=== PATIENT | male | born 1955 | race Asian ===

== ENCOUNTER 2022-05-11 08:30 | Inpatient (IN) ==
[2022-05-11] MEDS ORDERED: Lactated Ringers 1000 ml BAG 1,000 ML IV ONE (09:02)
[2022-05-11 09:34] LABS: Hematocrit 26 % (42-52); Hemoglobin 8.2 g/dL (14.0-18.0); Mean Corpuscular HGB Conc 32 g/dL (31-36); Mean Corpuscular Hemoglobin 29 pg (27-31); Mean Corpuscular Volume 90 fL (80-94); Mean Platelet Volume 8.1 fL (7.4-10.4); Platelet Count 343 10^3/uL (150-450); Red Blood Count 2.89 10^6 /uL (4.18-5.48); Red Cell Distribution Width 15 % (10-15); White Blood Count 21.9 10^3/uL (3.5-10.8)
[2022-05-11 10:00] LABS: INR 1.51 (0.88-1.18)
[2022-05-11 10:06] LABS: ABS Basophils 0.1 10^3/ul (0-0.2); ABS Eosinophils 0.2 10^3/ul (0-0.6); ABS Lymphocytes 0.3 10^3/ul (1.0-4.8); ABS Monocytes 1.1 10^3/ul (0-0.8); ABS Neutrophils 20.3 10^3/ul (1.5-7.7); Eosinophil % 0.8 %; Lymphocyte % 1.2 %; Nucleated Red Blood Cells % 0.1
[2022-05-11 10:13] LABS: Albumin 2.7 g/dL (3.2-5.2); Albumin/Globulin Ratio 1.1 (1-3); C Reactive Protein 143.14 mg/L (<8.01); Creatinine, Serum 7.76 mg/dL (0.67-1.17); Globulin 2.5 g/dL (2-4); Potassium 3.7 mmol/L (3.5-5.0); Total Bilirubin 0.3 mg/dL (0.2-1.0); Total Protein 5.2 g/dL (6.4-8.9); eGFR CKD-EPI 7.2 (>60)
[2022-05-11 10:18] LABS: Calcium 6.4 mg/dL (8.6-10.3)
[2022-05-11 10:27] LABS: TSH Ultra Thyroid Stim Horm 0.8 mcIU/mL (0.34-5.60)
[2022-05-11 10:28] LABS: PSA Screening Total 0.129 ng/mL (0-4.000)
[2022-05-11 11:07] LABS: High Sensitivity Troponin 1 Hr 61 pg/mL (<20)
[2022-05-11] MEDS ORDERED: Calcium Gluconate 1 GM/10 ML VIAL (in Pyxis) IV PUSH ONE (11:23)
[2022-05-11] MEDS ORDERED: NS 0.9% 500 ml BAG 500 ML IV ONE (11:23)
[2022-05-11] MEDS ORDERED: Sodium Bicarbonate 8.4% SYR 50 ml SYRINGE IV ONE ×2 (11:28→11:37)
[2022-05-11 11:37] LABS: Erythrocyte Sed Rate 90 mm/Hr (0-19)
[2022-05-11] MEDS ORDERED: Morphine 2 MG/ML SYRINGE IV ONE (11:39)
[2022-05-11] MEDS ORDERED: CALCIUM GLUCONATE 1GM/50ML NS BAG IV ONE (11:45)
[2022-05-11] MEDS ORDERED: Piperacillin/Tazobac ADVAN 3.375 GM in NS 0.9% 100 ml BAG 100 ML IV ONE ×2 (12:22→23:00)
[2022-05-11 12:25] LABS: PO2 Arterial 124 mmHg (80-100)
[2022-05-11 12:33] LABS: PCO2 Arterial <20 mmHg (35-45)
[2022-05-11 13:54] LABS: Urine Appearance Clear; Urine Bilirubin Negative (Negative); Urine Blood 2+ (Negative); Urine Color Straw; Urine Glucose 1+(50 mg/dL) (Negative); Urine Ketones Trace (Negative); Urine Nitrite Negative (Negative); Urine Protein 2+(100 mg/dL) (Negative); Urine Urobilinogen Negative (Negative)
[2022-05-11 13:58] LABS: Urine Bacteria 1+ (Absent); Urine Red Blood Cell 1+(3-5/hpf) (Absent); Urine White Blood Cell Trace(0-5/hpf) (Absent)
[2022-05-11] MEDS ORDERED: Dextrose 50% Syringe 50 ml 25 GM/50 ML SYRINGE IV PUSH PRN (14:11)
[2022-05-11 14:35] LABS: Magnesium 1.6 mg/dL (1.9-2.7)
[2022-05-11 15:04] LABS: Ferritin 358.5 ng/mL (24-336)
[2022-05-11] MEDS ORDERED: Morphine 2 MG/ML SYRINGE IV PRN (15:06)
[2022-05-11] MEDS ORDERED: Ondansetron 4 mg VIAL 2 MG/ML 2 ml VIAL IV PRN (15:25)
[2022-05-11] MEDS ORDERED: Zosyn per Pharmacy NOTE FOLLOW UP SCH ×2 (16:00)
[2022-05-11] MEDS: Heparin 1,000 UNIT/ML 10 ml (10,000 UNITS) CATHLAB/DIALYSIS DIALYSIS SCH ×4 (16:28→19:44)
[2022-05-11] MEDS ORDERED: Lidocaine 1% w EPI 1:100,000 MDV 20 ML VIAL INJ ONE (16:38)
[2022-05-11 17:05] LABS: Hepatitis B Surface Antigen Nonreactive (Nonreactive)
[2022-05-11] MEDS ORDERED: Magnesium Sulfate 2 gm BAG 2 GM/50 ML BAG IVPB ONE (17:11)
[2022-05-11 17:22] LABS: Hepatitis B Surface Ab Immune (Immune)
[2022-05-11 17:23] LABS: Hepatitis C Antibody Negative (Negative)
[2022-05-11] MEDS: Morphine 2 MG/ML SYRINGE IV PRN (17:37)
[2022-05-11] MEDS: NS 0.9% 1000 ml BAG 1,000 ML IV SCH (17:56)
[2022-05-11 17:59] LABS: HIV 4th Generation Nonreactive (Nonreactive)
[2022-05-11] MEDS ORDERED: Lidocaine 1% w EPI 1:100,000 MDV 50 ML VIAL INJ ONE (18:00)
[2022-05-11] MEDS: ZOSYN 3.375 GM Q12H per EXTENDED INFUSION IV SCH (19:19)
[2022-05-11 20:33] LABS: Folate 12.64 ng/mL (5.90-24.80)
[2022-05-11] MEDS ORDERED: Vancomycin 1,250 MG in NS 0.9% 250 ml 250 ML IVPB ONE (21:00)
[2022-05-11] MEDS: Heparin 5000 UNITS/ML 1 mL VIAL SUBCUT SCH (23:13)
[2022-05-12] MEDS: Prochlorperazine 5 mg/ml 2 ml VIAL (10 mg) IV PRN ×2 (01:32→20:53)
[2022-05-12] MEDS: Heparin 5000 UNITS/ML 1 mL VIAL SUBCUT SCH ×3 (06:09→20:59)
[2022-05-12] MEDS: NS 0.9% 1000 ml BAG 1,000 ML IV SCH (06:11)
[2022-05-12] MEDS: ZOSYN 3.375 GM Q12H per EXTENDED INFUSION IV SCH (08:05)
[2022-05-12] MEDS ORDERED: ceFAZolin 2 GM in NS PREMIX 2 GM/100 ML BAG IVPB SCH (11:00)
[2022-05-12 11:21] LABS: ABS Eosinophils 0.1 10^3/ul (0-0.6); ABS Lymphocytes 0.2 10^3/ul (1.0-4.8); ABS Monocytes 0.8 10^3/ul (0-0.8); ABS Neutrophils 11.8 10^3/ul (1.5-7.7); Eosinophil % 0.4 %; Hematocrit 23 % (42-52); Hemoglobin 7.5 g/dL (14.0-18.0); Lymphocyte % 1.9 %; Mean Corpuscular HGB Conc 33 g/dL (31-36); Mean Corpuscular Hemoglobin 30 pg (27-31); Mean Corpuscular Volume 90 fL (80-94); Mean Platelet Volume 8.2 fL (7.4-10.4); Platelet Count 270 10^3/uL (150-450); Red Blood Count 2.53 10^6 /uL (4.18-5.48); Red Cell Distribution Width 15 % (10-15)
[2022-05-12 12:27] LABS: Calcium 6.8 mg/dL (8.6-10.3); Creatinine, Serum 5.34 mg/dL (0.67-1.17); Potassium 3.5 mmol/L (3.5-5.0); eGFR CKD-EPI 11.3 (>60)
[2022-05-12 12:50] LABS: ABS Basophils 0.1 10^3/ul (0-0.2); ABS Eosinophils 0.1 10^3/ul (0-0.6); ABS Lymphocytes 0.2 10^3/ul (1.0-4.8); ABS Monocytes 0.7 10^3/ul (0-0.8); ABS Neutrophils 11.5 10^3/ul (1.5-7.7); Eosinophil % 0.6 %; Hematocrit 23 % (42-52); Hemoglobin 7.3 g/dL (14.0-18.0); Lymphocyte % 1.4 %; Mean Corpuscular HGB Conc 32 g/dL (31-36); Mean Corpuscular Hemoglobin 29 pg (27-31); Mean Corpuscular Volume 90 fL (80-94); Mean Platelet Volume 8.7 fL (7.4-10.4); Platelet Count 271 10^3/uL (150-450); Red Blood Count 2.54 10^6 /uL (4.18-5.48); Red Cell Distribution Width 15 % (10-15); White Blood Count 12.5 10^3/uL (3.5-10.8)
[2022-05-12 13:35] LABS: Calcium 6.7 mg/dL (8.6-10.3); Creatinine, Serum 5.22 mg/dL (0.67-1.17); Magnesium 1.9 mg/dL (1.9-2.7); Potassium 3.4 mmol/L (3.5-5.0); eGFR CKD-EPI 11.6 (>60)
[2022-05-12] MEDS: Heparin 1,000 UNIT/ML 10 ml (10,000 UNITS) CATHLAB/DIALYSIS DIALYSIS SCH ×4 (13:42→17:07)
[2022-05-12] MEDS: Morphine 2 MG/ML SYRINGE IV PRN (14:57)
[2022-05-12] MEDS: Lidocaine 2% JELLY 6 ML Topical TOPICAL SCH ×2 (17:13→22:47)
[2022-05-12] MEDS: ceFAZolin 1 GM in Dextrose 1 GM/50 ML BAG IVPB SCH (17:58)
[2022-05-12] MEDS: Senna TAB 8.6 mg TAB PO PRN (21:01)
[2022-05-13] MEDS: Heparin 5000 UNITS/ML 1 mL VIAL SUBCUT SCH ×3 (06:10→22:05)
[2022-05-13 06:46] LABS: ABS Eosinophils 0.2 10^3/ul (0-0.6); ABS Lymphocytes 0.4 10^3/ul (1.0-4.8); ABS Monocytes 0.9 10^3/ul (0-0.8); ABS Neutrophils 8.4 10^3/ul (1.5-7.7); Eosinophil % 1.6 %; Hematocrit 23 % (42-52); Hemoglobin 7.6 g/dL (14.0-18.0); Mean Corpuscular HGB Conc 33 g/dL (31-36); Mean Corpuscular Hemoglobin 30 pg (27-31); Mean Corpuscular Volume 90 fL (80-94); Platelet Count 251 10^3/uL (150-450); Red Blood Count 2.56 10^6 /uL (4.18-5.48); Red Cell Distribution Width 14 % (10-15); White Blood Count 9.8 10^3/uL (3.5-10.8)
[2022-05-13 07:25] LABS: Calcium 7.3 mg/dL (8.6-10.3); Creatinine, Serum 3.98 mg/dL (0.67-1.17); Magnesium 1.7 mg/dL (1.9-2.7); Potassium 3.5 mmol/L (3.5-5.0)
[2022-05-13] MEDS ORDERED: Potassium Chlor 20 meq TAB.ER PO ONE (07:26)
[2022-05-13] MEDS ORDERED: NS 0.9% 1000 ml BAG 1,000 ML IV SCH (09:45)
[2022-05-13] MEDS: Lidocaine 2% JELLY 6 ML Topical TOPICAL SCH ×3 (09:52→22:05)
[2022-05-13] MEDS: Prochlorperazine 5 mg/ml 2 ml VIAL (10 mg) IV PRN (11:40)
[2022-05-13] MEDS: ceFAZolin 1 GM in Dextrose 1 GM/50 ML BAG IVPB SCH (15:00)
[2022-05-13] MEDS: Morphine 2 MG/ML SYRINGE IV PRN (15:10)
[2022-05-13] MEDS: Heparin 1,000 UNIT/ML 10 ml (10,000 UNITS) CATHLAB/DIALYSIS DIALYSIS SCH (22:04)
[2022-05-14] MEDS: Heparin 5000 UNITS/ML 1 mL VIAL SUBCUT SCH ×3 (04:57→20:03)
[2022-05-14 05:12] LABS: ABS Basophils 0.1 10^3/ul (0-0.2); ABS Eosinophils 0.4 10^3/ul (0-0.6); ABS Lymphocytes 0.5 10^3/ul (1.0-4.8); ABS Monocytes 0.7 10^3/ul (0-0.8); ABS Neutrophils 7.3 10^3/ul (1.5-7.7); Eosinophil % 4.3 %; Hematocrit 22 % (42-52); Hemoglobin 7.1 g/dL (14.0-18.0); Lymphocyte % 5.3 %; Mean Corpuscular HGB Conc 32 g/dL (31-36); Mean Corpuscular Hemoglobin 29 pg (27-31); Mean Corpuscular Volume 91 fL (80-94); Mean Platelet Volume 8.3 fL (7.4-10.4); Nucleated Red Blood Cells % 0.1; Platelet Count 239 10^3/uL (150-450); Red Blood Count 2.46 10^6 /uL (4.18-5.48); Red Cell Distribution Width 15 % (10-15)
[2022-05-14 05:45] LABS: Calcium 7.4 mg/dL (8.6-10.3); Creatinine, Serum 4.79 mg/dL (0.67-1.17); Magnesium 1.8 mg/dL (1.9-2.7); Potassium 3.9 mmol/L (3.5-5.0); eGFR CKD-EPI 12.8 (>60)
[2022-05-14] MEDS ORDERED: Magnesium Sulfate 2 gm BAG 2 GM/50 ML BAG IVPB ONE (07:33)
[2022-05-14 09:43] LABS: Complement C3 107 mg/dL (75 - 175)
[2022-05-14 10:42] LABS: Myeloperoxidase Antibody <0.2 U
[2022-05-14] MEDS: Lidocaine 2% JELLY 6 ML Topical TOPICAL SCH ×3 (11:40→19:43)
[2022-05-14 12:25] LABS: Albumin 2.1 g/dL (3.4-4.7); Albumin/Globulin Ratio 0.73; Gamma Globulin 0.7 g/dL (0.6-1.6)
[2022-05-14] MEDS: Prochlorperazine 5 mg/ml 2 ml VIAL (10 mg) IV PRN ×2 (12:25→19:46)
[2022-05-14] MEDS: Ondansetron 4 mg VIAL 2 MG/ML 2 ml VIAL IV PRN (12:26)
[2022-05-14] MEDS: ceFAZolin 1 GM in Dextrose 1 GM/50 ML BAG IVPB SCH ×2 (14:21→19:43)
[2022-05-14 14:34] LABS: Kappa Free Light Chain 9.51 mg/dL; Lambda Free Light Chain, S 7.54 mg/dL
[2022-05-14] MEDS: Heparin 1,000 UNIT/ML 10 ml (10,000 UNITS) CATHLAB/DIALYSIS DIALYSIS SCH ×2 (15:31→17:18)
[2022-05-14] MEDS: Morphine 2 MG/ML SYRINGE IV PRN (19:43)
[2022-05-15] MEDS: Heparin 5000 UNITS/ML 1 mL VIAL SUBCUT SCH ×3 (05:41→20:12)
[2022-05-15 06:07] LABS: ABS Basophils 0.1 10^3/ul (0-0.2); ABS Eosinophils 0.6 10^3/ul (0-0.6); ABS Lymphocytes 0.5 10^3/ul (1.0-4.8); ABS Monocytes 0.6 10^3/ul (0-0.8); ABS Neutrophils 6.4 10^3/ul (1.5-7.7); Eosinophil % 7.5 %; Hematocrit 21 % (42-52); Hemoglobin 7.1 g/dL (14.0-18.0); Lymphocyte % 5.9 %; Mean Corpuscular HGB Conc 33 g/dL (31-36); Mean Corpuscular Hemoglobin 30 pg (27-31); Mean Corpuscular Volume 91 fL (80-94); Mean Platelet Volume 8.2 fL (7.4-10.4); Platelet Count 209 10^3/uL (150-450); Red Blood Count 2.36 10^6 /uL (4.18-5.48); Red Cell Distribution Width 15 % (10-15); White Blood Count 8.2 10^3/uL (3.5-10.8)
[2022-05-15] MEDS ORDERED: Magnesium Sulfate 2 gm BAG 2 GM/50 ML BAG IVPB ONE (07:13)
[2022-05-15] MEDS: Lidocaine 2% JELLY 6 ML Topical TOPICAL SCH ×3 (08:33→20:12)
[2022-05-15] MEDS: Morphine 2 MG/ML SYRINGE IV PRN (08:49)
[2022-05-15 11:41] LABS: C-ANCA Negative (Negative); P-ANCA Negative (Negative)
[2022-05-15 11:51] LABS: Cryoglobulin Negative %ppt (Negative)
[2022-05-15 12:10] LABS: Calcium 7.2 mg/dL (8.6-10.3); Creatinine, Serum 3.63 mg/dL (0.67-1.17); Potassium 3.9 mmol/L (3.5-5.0); eGFR CKD-EPI 17.9 (>60)
[2022-05-15] MEDS: Heparin 1,000 UNIT/ML 10 ml (10,000 UNITS) CATHLAB/DIALYSIS DIALYSIS SCH (12:44)
[2022-05-15] MEDS: ceFAZolin 1 GM in Dextrose 1 GM/50 ML BAG IVPB SCH (14:29)
[2022-05-15] MEDS ORDERED: Saliva Substitute (NF) 1 SPRAY BTL MT SCH (18:00)
[2022-05-15] MEDS: Senna TAB 8.6 mg TAB PO PRN (20:11)
[2022-05-15] MEDS: Magnesium Hydroxide LIQ 30 ML UDC PO PRN (20:11)
[2022-05-15] MEDS: CMCS: Saliva Substitute (NF) 1 SPRAY BTL MT SCH (20:12)
[2022-05-15] MEDS ORDERED: Gadoteridol (CONTRAST) 279.3 MG/ML 10 ML IV ONE (21:53)
[2022-05-16] MEDS: Heparin 5000 UNITS/ML 1 mL VIAL SUBCUT SCH (05:17)
[2022-05-16 05:41] LABS: Hematocrit 20 % (42-52); Hemoglobin 6.5 g/dL (14.0-18.0); Mean Corpuscular HGB Conc 32 g/dL (31-36); Mean Corpuscular Hemoglobin 29 pg (27-31); Mean Corpuscular Volume 91 fL (80-94); Mean Platelet Volume 7.5 fL (7.4-10.4); Platelet Count 193 10^3/uL (150-450); Red Cell Distribution Width 15 % (10-15); White Blood Count 9.2 10^3/uL (3.5-10.8)
[2022-05-16 05:46] LABS: ABS Basophils 0.1 10^3/ul (0-0.2); ABS Eosinophils 0.7 10^3/ul (0-0.6); ABS Lymphocytes 0.6 10^3/ul (1.0-4.8); ABS Monocytes 0.7 10^3/ul (0-0.8); ABS Neutrophils 7.9 10^3/ul (1.5-7.7); Eosinophil % 6.6 %; Lymphocyte % 6.4 %
[2022-05-16 06:21] LABS: CRP High Sensitivity 49.7 mg/L (<2.00); Calcium 7.2 mg/dL (8.6-10.3); Creatinine, Serum 4.51 mg/dL (0.67-1.17); Magnesium 2.4 mg/dL (1.9-2.7); Potassium 4.4 mmol/L (3.5-5.0); eGFR CKD-EPI 13.8 (>60)
[2022-05-16] MEDS: Lidocaine 2% JELLY 6 ML Topical TOPICAL SCH ×3 (10:50→22:12)
[2022-05-16] MEDS: Magnesium Hydroxide LIQ 30 ML UDC PO PRN (10:50)
[2022-05-16] MEDS: CMCS: Saliva Substitute (NF) 1 SPRAY BTL MT SCH ×3 (10:50→22:12)
[2022-05-16] MEDS: Ondansetron 4 mg VIAL 2 MG/ML 2 ml VIAL IV PRN (10:50)
[2022-05-16 11:08] LABS: INR 1.1 (0.88-1.18)
[2022-05-16] MEDS: Morphine 2 MG/ML SYRINGE IV PRN (13:13)
[2022-05-16] MEDS: Heparin 1,000 UNIT/ML 10 ml (10,000 UNITS) CATHLAB/DIALYSIS DIALYSIS SCH ×4 (13:40→17:27)
[2022-05-16 14:01] LABS: Hematocrit 23 % (42-52); Hemoglobin 7.3 g/dL (14.0-18.0)
[2022-05-16] MEDS: ceFAZolin 1 GM in Dextrose 1 GM/50 ML BAG IVPB SCH (18:20)
[2022-05-17 06:53] LABS: Hematocrit 24 % (42-52); Mean Corpuscular HGB Conc 34 g/dL (31-36); Mean Corpuscular Hemoglobin 30 pg (27-31); Mean Corpuscular Volume 91 fL (80-94); Mean Platelet Volume 8.2 fL (7.4-10.4); Platelet Count 212 10^3/uL (150-450); Red Blood Count 2.65 10^6 /uL (4.18-5.48); Red Cell Distribution Width 14 % (10-15); White Blood Count 10.4 10^3/uL (3.5-10.8)
[2022-05-17 07:07] LABS: Calcium 7.4 mg/dL (8.6-10.3); Creatinine, Serum 3.19 mg/dL (0.67-1.17); Potassium 4.9 mmol/L (3.5-5.0); eGFR CKD-EPI 20.8 (>60)
[2022-05-17] MEDS: Lidocaine 2% JELLY 6 ML Topical TOPICAL SCH ×2 (11:03→16:27)
[2022-05-17] MEDS: CMCS: Saliva Substitute (NF) 1 SPRAY BTL MT SCH ×3 (11:03→19:45)
[2022-05-17] MEDS ORDERED: fentaNYL 100 mcg/2 ml 50 MCG/ML VIAL ONE ×2 (11:04→15:53)
[2022-05-17] MEDS ORDERED: Midazolam 2 mg/2 ml VIAL 1 mg/ml 2 ml VIAL (2 mg) ONE ×2 (11:04→14:11)
[2022-05-17 12:17] LABS: Immunoglobulin A 359 mg/dL (61 - 356); Immunoglobulin G 749 mg/dL (767 - 1590); Immunoglobulin M 22 mg/dL (37 - 286)
[2022-05-17] MEDS ORDERED: Propofol 10 MG/ML 20 ML BTL ONE (12:36)
[2022-05-17] MEDS ORDERED: Lidocaine 2% PF 5 ML VIAL ONE (12:36)
[2022-05-17] MEDS ORDERED: Lidocaine 1% VIAL 10 MG/ML VIAL 30 ML ONE (12:59)
[2022-05-17] MEDS: Heparin 1,000 UNIT/ML 10 ml (10,000 UNITS) CATHLAB/DIALYSIS DIALYSIS SCH (16:27)
[2022-05-17] MEDS: ceFAZolin 1 GM in Dextrose 1 GM/50 ML BAG IVPB SCH (17:02)
[2022-05-17] MEDS: Morphine 2 MG/ML SYRINGE IV PRN (18:35)
[2022-05-18] MEDS: Morphine 2 MG/ML SYRINGE IV PRN (01:12)
[2022-05-18 07:50] LABS: Calcium 7.4 mg/dL (8.6-10.3); Creatinine, Serum 4.06 mg/dL (0.67-1.17); eGFR CKD-EPI 15.5 (>60)
[2022-05-18 07:53] LABS: Hematocrit 24 % (42-52); Hemoglobin 7.8 g/dL (14.0-18.0); Mean Corpuscular HGB Conc 33 g/dL (31-36); Mean Corpuscular Hemoglobin 30 pg (27-31); Mean Corpuscular Volume 91 fL (80-94); Mean Platelet Volume 8.3 fL (7.4-10.4); Platelet Count 224 10^3/uL (150-450); Red Cell Distribution Width 15 % (10-15); White Blood Count 13.3 10^3/uL (3.5-10.8)
[2022-05-18] MEDS: Heparin 1,000 UNIT/ML 10 ml (10,000 UNITS) CATHLAB/DIALYSIS DIALYSIS SCH ×4 (07:58→11:47)
[2022-05-18 08:25] LABS: Magnesium 1.9 mg/dL (1.9-2.7)
[2022-05-18 08:42] LABS: ABS Basophils 0.1 10^3/ul (0-0.2); ABS Eosinophils 0.6 10^3/ul (0-0.6); ABS Lymphocytes 0.5 10^3/ul (1.0-4.8); ABS Monocytes 0.7 10^3/ul (0-0.8); ABS Neutrophils 11.5 10^3/ul (1.5-7.7); Eosinophil % 4.1 %; Nucleated Red Blood Cells % 0.1
[2022-05-18 11:57] LABS: C Reactive Protein 44.05 mg/L (<8.01)
[2022-05-18] MEDS: CMCS: Saliva Substitute (NF) 1 SPRAY BTL MT SCH ×3 (13:40→19:45)
[2022-05-18] MEDS ORDERED: fentaNYL 100 mcg/2 ml 50 MCG/ML VIAL ONE (15:09)
[2022-05-18] MEDS ORDERED: Midazolam 5 mg/5 ml VIAL 1 mg/ml 5 ml VIAL (5 mg) ONE (15:09)
[2022-05-18] MEDS ORDERED: Naloxone 0.4 mg VIAL 0.4 mg/ml 1 ml VIAL ONE (15:10)
[2022-05-18] MEDS ORDERED: Flumazenil 0.5 mg/5 ml 0.1 MG/ML 5 ml VIAL ONE (15:10)
[2022-05-18] MEDS: ceFAZolin 1 GM in Dextrose 1 GM/50 ML BAG IVPB SCH (17:33)
[2022-05-19] MEDS: Senna TAB 8.6 mg TAB PO PRN (01:11)
[2022-05-19 06:20] LABS: ABS Basophils 0.1 10^3/ul (0-0.2); ABS Eosinophils 0.6 10^3/ul (0-0.6); ABS Lymphocytes 0.9 10^3/ul (1.0-4.8); ABS Monocytes 0.9 10^3/ul (0-0.8); ABS Neutrophils 8.8 10^3/ul (1.5-7.7); Eosinophil % 5.3 %; Hematocrit 23 % (42-52); Hemoglobin 7.3 g/dL (14.0-18.0); Lymphocyte % 7.9 %; Mean Corpuscular HGB Conc 32 g/dL (31-36); Mean Corpuscular Hemoglobin 29 pg (27-31); Mean Corpuscular Volume 91 fL (80-94); Mean Platelet Volume 8.1 fL (7.4-10.4); Platelet Count 234 10^3/uL (150-450); Red Blood Count 2.52 10^6 /uL (4.18-5.48); Red Cell Distribution Width 15 % (10-15); White Blood Count 11.3 10^3/uL (3.5-10.8)
[2022-05-19 06:26] LABS: INR 1.11 (0.88-1.18)
[2022-05-19 06:43] LABS: Albumin 2.1 g/dL (3.2-5.2); Anion Gap 6 mmol/L (2-11); Blood Urea Nitrogen 36 mg/dL (6-24); CO2 Carbon Dioxide 29 mmol/L (22-32); Calcium 7.2 mg/dL (8.6-10.3); Chloride 102 mmol/L (101-111); Creatinine, Serum 3.39 mg/dL (0.67-1.17); Glucose 108 mg/dL (70-100); Potassium 4.8 mmol/L (3.5-5.0); Sodium 137 mmol/L (135-145); Total Protein 4.4 g/dL (6.4-8.9); eGFR CKD-EPI 19.3 (>60)
[2022-05-19 06:44] LABS: AST 18 U/L (13-39); Albumin/Globulin Ratio 0.9 (1-3); Alkaline Phosphatase 97 U/L (35-149); C Reactive Protein 32.66 mg/L (<8.01); Globulin 2.3 g/dL (2-4)
[2022-05-19 06:46] LABS: ALT < 3 U/L (7-52)
[2022-05-19 09:27] LABS: Magnesium 1.5 mg/dL (1.9-2.7)
[2022-05-19] MEDS: CMCS: Saliva Substitute (NF) 1 SPRAY BTL MT SCH ×3 (10:33→20:24)
[2022-05-19] MEDS: ceFAZolin 1 GM in Dextrose 1 GM/50 ML BAG IVPB SCH (15:41)
[2022-05-19] MEDS: Heparin 1,000 UNIT/ML 10 ml (10,000 UNITS) CATHLAB/DIALYSIS DIALYSIS SCH (16:01)
[2022-05-19] MEDS: Morphine 2 MG/ML SYRINGE IV PRN (17:06)
[2022-05-19] MEDS ORDERED: Magnesium Sulf 4 GM/100 ML IV 4,000 MG/100 ML BAG IVPB ONE (19:00)
[2022-05-20] MEDS: Ondansetron 4 mg VIAL 2 MG/ML 2 ml VIAL IV PRN ×2 (00:55→17:19)
[2022-05-20] MEDS: Morphine 2 MG/ML SYRINGE IV PRN ×4 (01:05→22:05)
[2022-05-20] MEDS: CMCS: Saliva Substitute (NF) 1 SPRAY BTL MT SCH ×3 (08:07→22:03)
[2022-05-20 08:13] LABS: ABS Basophils 0.1 10^3/ul (0-0.2); ABS Eosinophils 0.5 10^3/ul (0-0.6); ABS Lymphocytes 0.7 10^3/ul (1.0-4.8); ABS Monocytes 1.2 10^3/ul (0-0.8); ABS Neutrophils 12.6 10^3/ul (1.5-7.7); Eosinophil % 3.3 %; Hematocrit 22 % (42-52); Hemoglobin 7.1 g/dL (14.0-18.0); Lymphocyte % 4.8 %; Mean Corpuscular HGB Conc 33 g/dL (31-36); Mean Corpuscular Hemoglobin 30 pg (27-31); Mean Corpuscular Volume 91 fL (80-94); Mean Platelet Volume 8.3 fL (7.4-10.4); Platelet Count 245 10^3/uL (150-450); Red Blood Count 2.38 10^6 /uL (4.18-5.48); Red Cell Distribution Width 14 % (10-15); White Blood Count 15.1 10^3/uL (3.5-10.8)
[2022-05-20 08:18] LABS: Calcium 7.3 mg/dL (8.6-10.3); Creatinine, Serum 4.31 mg/dL (0.67-1.17); Magnesium 2.5 mg/dL (1.9-2.7); eGFR CKD-EPI 14.5 (>60)
[2022-05-20 08:24] LABS: Potassium 5.3 mmol/L (3.5-5.0)
[2022-05-20] MEDS ORDERED: SODIUM ZIRCONIUM CYCLOSILICATE 5 GM PACKET PO ONE ×2 (10:30→10:31)
[2022-05-20 12:20] LABS: AST 16 U/L (13-39); Albumin 2.5 g/dL (3.2-5.2); Alkaline Phosphatase 90 U/L (35-149); Blood Urea Nitrogen 69 mg/dL (6-24); CO2 Carbon Dioxide 26 mmol/L (22-32); Calcium 7.5 mg/dL (8.6-10.3); Chloride 102 mmol/L (101-111); Creatinine, Serum 4.57 mg/dL (0.67-1.17); Globulin 2.5 g/dL (2-4); Glucose 148 mg/dL (70-100); Lipase 19 U/L (11.0-82.0); Sodium 135 mmol/L (135-145); eGFR CKD-EPI 13.5 (>60)
[2022-05-20 12:25] LABS: ALT < 3 U/L (7-52); Anion Gap 7 mmol/L (2-11); Potassium 5.2 mmol/L (3.5-5.0)
[2022-05-20 13:13] LABS: Urine Appearance Cloudy; Urine Bilirubin Negative (Negative); Urine Blood 2+ (Negative); Urine Color Yellow; Urine Glucose 1+(50 mg/dL) (Negative); Urine Ketones Negative (Negative); Urine Nitrite Negative (Negative); Urine Protein 3+(>=500 mg/dL) (Negative); Urine Specific Gravity 1.012 (1.002-1.030); Urine Urobilinogen Negative (Negative)
[2022-05-20 14:18] LABS: Urine Bacteria 1+ (Absent); Urine Red Blood Cell Trace(0-2/hpf) (Absent); Urine Squamous Epithelial Cell Present (Absent); Urine White Blood Cell Trace(0-5/hpf) (Absent); Urine Yeast Present (Absent)
[2022-05-20] MEDS: ceFAZolin 1 GM in Dextrose 1 GM/50 ML BAG IVPB SCH (14:45)
[2022-05-20] MEDS: Heparin 1,000 UNIT/ML 10 ml (10,000 UNITS) CATHLAB/DIALYSIS DIALYSIS SCH (14:52)
[2022-05-21] MEDS: Morphine 2 MG/ML SYRINGE IV PRN ×3 (04:28→18:11)
[2022-05-21 04:46] LABS: ABS Basophils 0.1 10^3/ul (0-0.2); ABS Eosinophils 0.4 10^3/ul (0-0.6); ABS Lymphocytes 0.6 10^3/ul (1.0-4.8); ABS Monocytes 1.1 10^3/ul (0-0.8); ABS Neutrophils 11.4 10^3/ul (1.5-7.7); Eosinophil % 2.7 %; Hematocrit 21 % (42-52); Hemoglobin 6.7 g/dL (14.0-18.0); Lymphocyte % 4.6 %; Mean Corpuscular HGB Conc 32 g/dL (31-36); Mean Corpuscular Hemoglobin 29 pg (27-31); Mean Corpuscular Volume 92 fL (80-94); Mean Platelet Volume 7.5 fL (7.4-10.4); Platelet Count 242 10^3/uL (150-450); Red Blood Count 2.29 10^6 /uL (4.18-5.48); Red Cell Distribution Width 14 % (10-15); White Blood Count 13.5 10^3/uL (3.5-10.8)
[2022-05-21 05:25] LABS: C Reactive Protein 104.62 mg/L (<8.01); Calcium 7.6 mg/dL (8.6-10.3); Creatinine, Serum 5.06 mg/dL (0.67-1.17); Magnesium 2.4 mg/dL (1.9-2.7); eGFR CKD-EPI 11.9 (>60)
[2022-05-21 05:32] LABS: Potassium 5.7 mmol/L (3.5-5.0)
[2022-05-21] MEDS ORDERED: SODIUM ZIRCONIUM CYCLOSILICATE 10 GM PACKET PO ONE (07:34)
[2022-05-21] MEDS: Heparin 1,000 UNIT/ML 10 ml (10,000 UNITS) CATHLAB/DIALYSIS DIALYSIS SCH ×4 (07:50→11:40)
[2022-05-21] MEDS: CMCS: Saliva Substitute (NF) 1 SPRAY BTL MT SCH ×3 (12:37→20:29)
[2022-05-21] MEDS: ceFAZolin 1 GM in Dextrose 1 GM/50 ML BAG IVPB SCH (16:32)
[2022-05-21] MEDS: Magnesium Hydroxide LIQ 30 ML UDC PO PRN (20:28)
[2022-05-21] MEDS: Senna TAB 8.6 mg TAB PO PRN (20:28)
[2022-05-22] MEDS ORDERED: Metoprolol Tartrate 5 mg VIAL 5 ml VIAL (1 mg/ml) IV ONE (04:13)
[2022-05-22] MEDS: Morphine 2 MG/ML SYRINGE IV PRN ×2 (04:49→14:23)
[2022-05-22 06:55] LABS: ABS Basophils 0.1 10^3/ul (0-0.2); ABS Eosinophils 0.2 10^3/ul (0-0.6); ABS Lymphocytes 0.5 10^3/ul (1.0-4.8); ABS Neutrophils 9.7 10^3/ul (1.5-7.7); Eosinophil % 1.4 %; Hematocrit 26 % (42-52); Hemoglobin 8.6 g/dL (14.0-18.0); Lymphocyte % 4.6 %; Mean Corpuscular HGB Conc 33 g/dL (31-36); Mean Corpuscular Hemoglobin 30 pg (27-31); Mean Corpuscular Volume 92 fL (80-94); Mean Platelet Volume 7.8 fL (7.4-10.4); Platelet Count 278 10^3/uL (150-450); Red Blood Count 2.85 10^6 /uL (4.18-5.48); Red Cell Distribution Width 14 % (10-15); White Blood Count 11.5 10^3/uL (3.5-10.8)
[2022-05-22 07:34] LABS: Calcium 7.7 mg/dL (8.6-10.3); Creatinine, Serum 3.64 mg/dL (0.67-1.17); Potassium 4.9 mmol/L (3.5-5.0); eGFR CKD-EPI 17.7 (>60)
[2022-05-22] MEDS: Ondansetron 4 mg VIAL 2 MG/ML 2 ml VIAL IV PRN ×2 (08:24→16:41)
[2022-05-22] MEDS ORDERED: Desmopressin Acetate 30 MCG in NS 0.9% 50 ML 50 ML IVPB ONE (09:00)
[2022-05-22] MEDS: CMCS: Saliva Substitute (NF) 1 SPRAY BTL MT SCH ×3 (09:19→22:22)
[2022-05-22] MEDS: Heparin 1,000 UNIT/ML 10 ml (10,000 UNITS) CATHLAB/DIALYSIS DIALYSIS SCH (09:20)
[2022-05-22] MEDS ORDERED: Heparin 2 UNITS/ML IVPREMIX 1,000 UNIT/500 ML BAG IV ONE (11:10)
[2022-05-22] MEDS ORDERED: Lidocaine 1% MPF 5 ML VIAL ONE ×2 (11:10→11:46)
[2022-05-22] MEDS ORDERED: Heparin 5000 UNITS/ML 1 mL VIAL ONE (11:10)
[2022-05-22] MEDS ORDERED: fentaNYL 100 mcg/2 ml 50 MCG/ML VIAL ONE (11:11)
[2022-05-22] MEDS ORDERED: Midazolam 5 mg/5 ml VIAL 1 mg/ml 5 ml VIAL (5 mg) ONE (11:11)
[2022-05-22] MEDS: ceFAZolin 1 GM in Dextrose 1 GM/50 ML BAG IVPB SCH (14:23)
[2022-05-22] MEDS ORDERED: Pentafluoroprop/Tetrafluoro 1 SPRAY TOP.SPRAY TOPICAL ONE (14:30)
[2022-05-23] MEDS: Morphine 2 MG/ML SYRINGE IV PRN ×2 (02:10→19:59)
[2022-05-23] MEDS: Ondansetron 4 mg VIAL 2 MG/ML 2 ml VIAL IV PRN ×2 (02:11→20:04)
[2022-05-23] MEDS: CMCS: Saliva Substitute (NF) 1 SPRAY BTL MT SCH ×3 (09:09→20:08)
[2022-05-23 09:18] LABS: Hematocrit 28 % (42-52); Mean Corpuscular HGB Conc 32 g/dL (31-36); Mean Corpuscular Hemoglobin 30 pg (27-31); Mean Corpuscular Volume 93 fL (80-94); Mean Platelet Volume 8.5 fL (7.4-10.4); Platelet Count 340 10^3/uL (150-450); Red Cell Distribution Width 14 % (10-15); White Blood Count 9.8 10^3/uL (3.5-10.8)
[2022-05-23] MEDS: Heparin 1,000 UNIT/ML 10 ml (10,000 UNITS) CATHLAB/DIALYSIS DIALYSIS SCH ×4 (09:40→13:30)
[2022-05-23 09:47] LABS: AST 15 U/L (13-39); Albumin 2.6 g/dL (3.2-5.2); Albumin/Globulin Ratio 0.8 (1-3); Alkaline Phosphatase 98 U/L (35-149); Blood Urea Nitrogen 77 mg/dL (6-24); C Reactive Protein 180.37 mg/L (<8.01); CO2 Carbon Dioxide 26 mmol/L (22-32); Calcium 8.2 mg/dL (8.6-10.3); Chloride 93 mmol/L (101-111); Globulin 3.3 g/dL (2-4); Glucose 146 mg/dL (70-100); Magnesium 2.4 mg/dL (1.9-2.7); Sodium 134 mmol/L (135-145); Total Protein 5.9 g/dL (6.4-8.9); eGFR CKD-EPI 12.7 (>60)
[2022-05-23 09:57] LABS: Anion Gap 15 mmol/L (2-11); Potassium 5.2 mmol/L (3.5-5.0)
[2022-05-23 10:08] LABS: ALT < 3 U/L (7-52)
[2022-05-23] MEDS ORDERED: Sulfamethox/Trimethoprim DS TAB 800/160 mg PO SCH (12:56)
[2022-05-23] MEDS ORDERED: Triamcinolone Acetonide 40 mg VIAL 40 mg/ml 1 ml VIAL INTRAARTIC ONE (13:31)
[2022-05-23] MEDS ORDERED: Lidocaine 1% VIAL 10 MG/ML VIAL 30 ML INJ ONE (13:32)
[2022-05-23] MEDS: ceFAZolin 1 GM in Dextrose 1 GM/50 ML BAG IVPB SCH (14:42)
[2022-05-23] MEDS: Collagenase 250 units/gm OINT 1 tube TOPICAL SCH (15:11)
[2022-05-23 18:19] LABS: Case Number CR-23-12085
[2022-05-24 06:49] LABS: Hematocrit 29 % (42-52); Hemoglobin 9.5 g/dL (14.0-18.0); Mean Corpuscular HGB Conc 33 g/dL (31-36); Mean Corpuscular Hemoglobin 30 pg (27-31); Mean Corpuscular Volume 92 fL (80-94); Mean Platelet Volume 8.3 fL (7.4-10.4); Platelet Count 392 10^3/uL (150-450); Red Blood Count 3.11 10^6 /uL (4.18-5.48); Red Cell Distribution Width 14 % (10-15); White Blood Count 6.7 10^3/uL (3.5-10.8)
[2022-05-24 07:10] LABS: Calcium 8.2 mg/dL (8.6-10.3); Creatinine, Serum 3.81 mg/dL (0.67-1.17); eGFR CKD-EPI 16.8 (>60)
[2022-05-24] MEDS: Morphine 2 MG/ML SYRINGE IV PRN (08:03)
[2022-05-24] MEDS: CMCS: Saliva Substitute (NF) 1 SPRAY BTL MT SCH ×3 (08:13→20:32)
[2022-05-24] MEDS: Heparin 1,000 UNIT/ML 10 ml (10,000 UNITS) CATHLAB/DIALYSIS DIALYSIS SCH (10:42)
[2022-05-24] MEDS: Collagenase 250 units/gm OINT 1 tube TOPICAL SCH (12:51)
[2022-05-24 14:19] LABS: Case Number KR-23-1504
[2022-05-24] MEDS: ceFAZolin 1 GM in Dextrose 1 GM/50 ML BAG IVPB SCH (15:29)
[2022-05-24] MEDS ORDERED: fentaNYL 100 mcg/2 ml 50 MCG/ML VIAL ONE (17:37)
[2022-05-24] MEDS ORDERED: Midazolam 10 mg/10 ml VIAL 1 mg/ml 10 ml VIAL (10 mg) ONE ×2 (17:37→17:45)
[2022-05-24] MEDS ORDERED: Lactated Ringers 1000 ml BAG 1,000 ML IV ONE (17:54)
[2022-05-24] MEDS ORDERED: fentaNYL 100 mcg/2 ml 50 MCG/ML VIAL IV SLOW PU ONE (17:54)
[2022-05-24] MEDS ORDERED: Naloxone 0.4 mg VIAL 0.4 mg/ml 1 ml VIAL IV PUSH PRN (17:54)
[2022-05-24] MEDS ORDERED: Midazolam 10 mg/10 ml VIAL 1 mg/ml 10 ml VIAL (10 mg) IV SLOW PU ONE (17:54)
[2022-05-24] MEDS ORDERED: Flumazenil 0.5 mg/5 ml 0.1 MG/ML 5 ml VIAL IV PRN (17:54)
[2022-05-25] MEDS: Morphine 2 MG/ML SYRINGE IV PRN ×3 (02:18→20:27)
[2022-05-25] MEDS: Collagenase 250 units/gm OINT 1 tube TOPICAL SCH (09:53)
[2022-05-25] MEDS: CMCS: Saliva Substitute (NF) 1 SPRAY BTL MT SCH ×3 (09:53→20:26)
[2022-05-25] MEDS: ceFAZolin 1 GM in Dextrose 1 GM/50 ML BAG IVPB SCH (13:28)
[2022-05-25] MEDS: Heparin 1,000 UNIT/ML 10 ml (10,000 UNITS) CATHLAB/DIALYSIS DIALYSIS SCH ×5 (14:20→18:20)
[2022-05-25 18:06] LABS: Hematocrit 28 % (42-52); Hemoglobin 9.1 g/dL (14.0-18.0); Mean Corpuscular HGB Conc 33 g/dL (31-36); Mean Corpuscular Hemoglobin 29 pg (27-31); Mean Corpuscular Volume 90 fL (80-94); Mean Platelet Volume 8.2 fL (7.4-10.4); Platelet Count 365 10^3/uL (150-450); Red Cell Distribution Width 14 % (10-15); White Blood Count 6.7 10^3/uL (3.5-10.8)
[2022-05-25 18:11] LABS: Calcium 7.9 mg/dL (8.6-10.3); Potassium 3.2 mmol/L (3.5-5.0)
[2022-05-25 18:17] LABS: C Reactive Protein 65.35 mg/L (<8.01); Creatinine, Serum 1.79 mg/dL (0.67-1.17); eGFR CKD-EPI 41.5 (>60)
[2022-05-25] MEDS: Ondansetron 4 mg VIAL 2 MG/ML 2 ml VIAL IV PRN (20:27)
[2022-05-26 06:45] LABS: Hematocrit 28 % (42-52); Hemoglobin 9.4 g/dL (14.0-18.0); Mean Corpuscular HGB Conc 34 g/dL (31-36); Mean Corpuscular Hemoglobin 31 pg (27-31); Mean Corpuscular Volume 91 fL (80-94); Mean Platelet Volume 8.4 fL (7.4-10.4); Platelet Count 359 10^3/uL (150-450); Red Blood Count 3.06 10^6 /uL (4.18-5.48); Red Cell Distribution Width 14 % (10-15); White Blood Count 5.8 10^3/uL (3.5-10.8)
[2022-05-26 07:34] LABS: Calcium 7.8 mg/dL (8.6-10.3); Creatinine, Serum 3.49 mg/dL (0.67-1.17); Magnesium 1.7 mg/dL (1.9-2.7); Potassium 4.5 mmol/L (3.5-5.0); eGFR CKD-EPI 18.6 (>60)
[2022-05-26] MEDS: Collagenase 250 units/gm OINT 1 tube TOPICAL SCH (08:31)
[2022-05-26] MEDS: CMCS: Saliva Substitute (NF) 1 SPRAY BTL MT SCH ×3 (08:33→21:39)
[2022-05-26] MEDS: Heparin 1,000 UNIT/ML 10 ml (10,000 UNITS) CATHLAB/DIALYSIS DIALYSIS SCH (08:33)
[2022-05-26] MEDS ORDERED: Magnesium Sulfate 2 gm BAG 2 GM/50 ML BAG IVPB ONE (08:45)
[2022-05-26] MEDS: Morphine 2 MG/ML SYRINGE IV PRN ×2 (10:05→21:38)
[2022-05-26] MEDS: ceFAZolin 1 GM in Dextrose 1 GM/50 ML BAG IVPB SCH (13:25)
[2022-05-26] MEDS: Ondansetron 4 mg VIAL 2 MG/ML 2 ml VIAL IV PRN (14:30)
[2022-05-26 16:37] LABS: B. burgdorferi PCR Negative (Negative); B. garinii/B. afzellii PCR Negative (Negative); Lyme Disease Source SYNOVIAL FLUID
[2022-05-27 06:46] LABS: Hematocrit 25 % (42-52); Hemoglobin 8.3 g/dL (14.0-18.0); Mean Corpuscular HGB Conc 33 g/dL (31-36); Mean Corpuscular Hemoglobin 30 pg (27-31); Mean Corpuscular Volume 91 fL (80-94); Mean Platelet Volume 8.4 fL (7.4-10.4); Platelet Count 363 10^3/uL (150-450); Red Blood Count 2.76 10^6 /uL (4.18-5.48); Red Cell Distribution Width 14 % (10-15); White Blood Count 7.7 10^3/uL (3.5-10.8)
[2022-05-27 07:02] LABS: Calcium 7.7 mg/dL (8.6-10.3); Creatinine, Serum 5.25 mg/dL (0.67-1.17); Potassium 4.9 mmol/L (3.5-5.0); eGFR CKD-EPI 11.4 (>60)
[2022-05-27] MEDS: CMCS: Saliva Substitute (NF) 1 SPRAY BTL MT SCH ×3 (07:28→20:22)
[2022-05-27] MEDS: Heparin 1,000 UNIT/ML 10 ml (10,000 UNITS) CATHLAB/DIALYSIS DIALYSIS SCH (08:46)
[2022-05-27] MEDS: ceFAZolin 1 GM in Dextrose 1 GM/50 ML BAG IVPB SCH (13:35)
[2022-05-27] MEDS: Morphine 2 MG/ML SYRINGE IV PRN (13:36)
[2022-05-27] MEDS: Polyethylene Glycol 3350 17 GM PACKET PO SCH (13:37)
[2022-05-27] MEDS: Collagenase 250 units/gm OINT 1 tube TOPICAL SCH (14:41)
[2022-05-27] MEDS: CMCS: SitaGLIPtin 25mg TAB (NF) 25 MG TAB PO SCH (19:30)
[2022-05-27] MEDS: Magnesium Hydroxide LIQ 30 ML UDC PO PRN (20:22)
[2022-05-27] MEDS: Ondansetron 4 mg VIAL 2 MG/ML 2 ml VIAL IV PRN (22:34)
[2022-05-28 06:11] LABS: Hematocrit 27 % (42-52); Mean Corpuscular HGB Conc 33 g/dL (31-36); Mean Corpuscular Hemoglobin 30 pg (27-31); Mean Corpuscular Volume 90 fL (80-94); Mean Platelet Volume 8.2 fL (7.4-10.4); Platelet Count 392 10^3/uL (150-450); Red Blood Count 3.02 10^6 /uL (4.18-5.48); Red Cell Distribution Width 14 % (10-15)
[2022-05-28 06:27] LABS: Potassium 5.2 mmol/L (3.5-5.0)
[2022-05-28 06:32] LABS: Creatinine, Serum 6.69 mg/dL (0.67-1.17); eGFR CKD-EPI 8.5 (>60)
[2022-05-28] MEDS: Polyethylene Glycol 3350 17 GM PACKET PO SCH ×3 (09:24→21:01)
[2022-05-28] MEDS: CMCS: SitaGLIPtin 25mg TAB (NF) 25 MG TAB PO SCH (09:24)
[2022-05-28] MEDS: Heparin 1,000 UNIT/ML 10 ml (10,000 UNITS) CATHLAB/DIALYSIS DIALYSIS SCH ×5 (09:37→19:42)
[2022-05-28] MEDS: CMCS: Saliva Substitute (NF) 1 SPRAY BTL MT SCH ×4 (11:07→21:09)
[2022-05-28] MEDS: Collagenase 250 units/gm OINT 1 tube TOPICAL SCH (11:11)
[2022-05-28] MEDS: Magnesium Hydroxide LIQ 30 ML UDC PO PRN (12:18)
[2022-05-28] MEDS: ceFAZolin 1 GM in Dextrose 1 GM/50 ML BAG IVPB SCH ×2 (14:17→20:55)
[2022-05-28 18:13] LABS: Rapid COVID-19 Molecular Detected (Undetected)
[2022-05-29 07:35] LABS: Calcium 7.8 mg/dL (8.6-10.3); Creatinine, Serum 4.45 mg/dL (0.67-1.17); Magnesium 1.9 mg/dL (1.9-2.7); Potassium 4.9 mmol/L (3.5-5.0); eGFR CKD-EPI 13.9 (>60)
[2022-05-29] MEDS: Senna TAB 8.6 mg TAB PO SCH ×2 (08:12→21:00)
[2022-05-29] MEDS: CMCS: SitaGLIPtin 25mg TAB (NF) 25 MG TAB PO SCH (08:13)
[2022-05-29] MEDS: Polyethylene Glycol 3350 17 GM PACKET PO SCH ×2 (08:13→20:59)
[2022-05-29] MEDS: CMCS: Saliva Substitute (NF) 1 SPRAY BTL MT SCH ×3 (08:36→21:03)
[2022-05-29 10:08] LABS: Urine Osmo 319 mOsm/kg (150-1150)
[2022-05-29] MEDS: Collagenase 250 units/gm OINT 1 tube TOPICAL SCH (12:38)
[2022-05-29] MEDS: Heparin 1,000 UNIT/ML 10 ml (10,000 UNITS) CATHLAB/DIALYSIS DIALYSIS SCH (12:39)
[2022-05-29] MEDS: ceFAZolin 1 GM in Dextrose 1 GM/50 ML BAG IVPB SCH (15:10)
[2022-05-29] MEDS: Insulin GLARGINE 100 un/ml 10 ml VIAL SUBCUT SCH (21:03)
[2022-05-30 06:55] LABS: Creatinine, Serum 5.34 mg/dL (0.67-1.17); eGFR CKD-EPI 11.2 (>60)
[2022-05-30 07:08] LABS: Potassium 5.2 mmol/L (3.5-5.0)
[2022-05-30] MEDS: Senna TAB 8.6 mg TAB PO SCH ×2 (07:51→19:40)
[2022-05-30] MEDS: CMCS: SitaGLIPtin 25mg TAB (NF) 25 MG TAB PO SCH (07:51)
[2022-05-30] MEDS: Polyethylene Glycol 3350 17 GM PACKET PO SCH ×2 (07:51→19:40)
[2022-05-30] MEDS: CMCS: Saliva Substitute (NF) 1 SPRAY BTL MT SCH ×3 (08:31→20:05)
[2022-05-30] MEDS: Collagenase 250 units/gm OINT 1 tube TOPICAL SCH (13:04)
[2022-05-30] MEDS ORDERED: SODIUM ZIRCONIUM CYCLOSILICATE 10 GM PACKET PO ONE (13:25)
[2022-05-30] MEDS: ceFAZolin 1 GM in Dextrose 1 GM/50 ML BAG IVPB SCH (13:37)
[2022-05-30] MEDS: Heparin 1,000 UNIT/ML 10 ml (10,000 UNITS) CATHLAB/DIALYSIS DIALYSIS SCH ×4 (15:50→18:55)
[2022-05-30] MEDS: Insulin GLARGINE 100 un/ml 10 ml VIAL SUBCUT SCH (19:41)
[2022-05-31] MEDS: Polyethylene Glycol 3350 17 GM PACKET PO SCH ×2 (10:00→20:06)
[2022-05-31] MEDS: CMCS: SitaGLIPtin 25mg TAB (NF) 25 MG TAB PO SCH (10:01)
[2022-05-31] MEDS: Senna TAB 8.6 mg TAB PO SCH ×2 (10:01→20:07)
[2022-05-31] MEDS: CMCS: Saliva Substitute (NF) 1 SPRAY BTL MT SCH ×3 (13:02→20:09)
[2022-05-31] MEDS: Heparin 1,000 UNIT/ML 10 ml (10,000 UNITS) CATHLAB/DIALYSIS DIALYSIS SCH (13:02)
[2022-05-31] MEDS: ceFAZolin 1 GM in Dextrose 1 GM/50 ML BAG IVPB SCH (13:56)
[2022-05-31] MEDS: Collagenase 250 units/gm OINT 1 tube TOPICAL SCH (13:57)
[2022-05-31] MEDS ORDERED: Benzocaine (DENTAL) 10% TOP.GEL TOPICAL PRN (18:06)
[2022-05-31] MEDS: Insulin GLARGINE 100 un/ml 10 ml VIAL SUBCUT SCH (20:08)
[2022-06-01 07:08] LABS: Calcium 7.6 mg/dL (8.6-10.3); Creatinine, Serum 4.96 mg/dL (0.67-1.17); eGFR CKD-EPI 12.2 (>60)
[2022-06-01 07:16] LABS: Potassium 5.3 mmol/L (3.5-5.0)
[2022-06-01] MEDS: Heparin 1,000 UNIT/ML 10 ml (10,000 UNITS) CATHLAB/DIALYSIS DIALYSIS SCH ×4 (08:13→12:00)
[2022-06-01] MEDS: Senna TAB 8.6 mg TAB PO SCH (12:36)
[2022-06-01] MEDS: CMCS: SitaGLIPtin 25mg TAB (NF) 25 MG TAB PO SCH (12:37)
[2022-06-01] MEDS: Polyethylene Glycol 3350 17 GM PACKET PO SCH (12:38)
[2022-06-01] MEDS: CMCS: Saliva Substitute (NF) 1 SPRAY BTL MT SCH ×2 (13:25→14:39)
[2022-06-01] MEDS: Collagenase 250 units/gm OINT 1 tube TOPICAL SCH (13:25)
[2022-06-01] MEDS: ceFAZolin 1 GM in Dextrose 1 GM/50 ML BAG IVPB SCH (14:03)
[2022-06-01 14:13] VITALS: BP 130/73
== END 2022-06-01 17:02 | disposition short-term general hospital (02) | DRG 853 ==
LOC: ED 08:30 → EDHOLD 08:30 → OBSVTOIN 13:17 → SUATTDRO 13:17 → EDHOLD 15:00 → MED 15:11
PROVIDERS: ADMIT Student in an Organized Health Care Education/Training Program; ATTEND Internal Medicine
PROC: O.GEI&D (2022-05-17 10:30)

== ENCOUNTER 2022-06-29 18:47 | Inpatient (IN) ==
[2022-06-29] MEDS ORDERED: Magnesium Hydroxide LIQ 30 ML UDC PO PRN (19:04)
[2022-06-29] MEDS ORDERED: Senna TAB 8.6 mg TAB PO PRN (19:04)
[2022-06-29] MEDS ORDERED: Benzocaine (DENTAL) 10% TOP.GEL TOPICAL PRN (19:04)
[2022-06-29] MEDS ORDERED: Dextrose 50% Syringe 50 ml 25 GM/50 ML SYRINGE IV PUSH PRN (19:11)
[2022-06-29] MEDS: Polyethylene Glycol 3350 17 GM PACKET PO SCH (21:44)
[2022-06-29] MEDS: Heparin 5000 UNITS/ML 1 mL VIAL SUBCUT SCH (21:45)
[2022-06-29] MEDS: Insulin GLARGINE 100 un/ml 10 ml VIAL SUBCUT SCH (21:46)
[2022-06-30 08:17] LABS: Calcium 8.3 mg/dL (8.6-10.3); Creatinine, Serum 4.77 mg/dL (0.67-1.17); Potassium 4.9 mmol/L (3.5-5.0); eGFR CKD-EPI 12.8 (>60)
[2022-06-30] MEDS: Polyethylene Glycol 3350 17 GM PACKET PO SCH ×2 (09:05→21:05)
[2022-06-30] MEDS: Heparin 5000 UNITS/ML 1 mL VIAL SUBCUT SCH ×2 (09:06→21:02)
[2022-06-30] MEDS: CMCS:SitaGLIPtin 25mg TAB (NF) 25 MG TAB PO SCH (09:06)
[2022-06-30] MEDS: Insulin GLARGINE 100 un/ml 10 ml VIAL SUBCUT SCH (21:03)
[2022-07-01] MEDS: CMCS:SitaGLIPtin 25mg TAB (NF) 25 MG TAB PO SCH (09:04)
[2022-07-01] MEDS: Heparin 5000 UNITS/ML 1 mL VIAL SUBCUT SCH ×2 (09:05→21:07)
[2022-07-01] MEDS: Polyethylene Glycol 3350 17 GM PACKET PO SCH ×2 (09:05→21:07)
[2022-07-01] MEDS ORDERED: Albumin Human 25% 25 GM/100 ML BTL IV PRN (12:33)
[2022-07-01] MEDS ORDERED: NS 0.9% 1000 ml BAG 100 ML IV PRN (12:33)
[2022-07-01] MEDS ORDERED: NS 0.9% 1000 ml BAG 200 ML IV PRN (12:33)
[2022-07-01] MEDS: Insulin GLARGINE 100 un/ml 10 ml VIAL SUBCUT SCH (21:07)
[2022-07-02 08:47] LABS: Hematocrit 26 % (42-52); Hemoglobin 8.3 g/dL (14.0-18.0); Mean Corpuscular Hemoglobin 30 pg (27-31); Mean Corpuscular Hgb Conc 33 g/dL (31-36); Mean Corpuscular Volume 92 fL (80-94); Platelet Count 402 10^3/uL (150-450); Red Blood Count 2.77 10^6 /uL (4.18-5.48); Red Cell Distribution Width 16 % (10-15); White Blood Count 6.8 10^3/uL (3.5-10.8)
[2022-07-02 08:48] LABS: ABS Basophils 0.1 10^3/ul (0-0.2); ABS Eosinophils 0.2 10^3/ul (0-0.6); ABS Lymphocytes 1.3 10^3/ul (1.0-4.8); ABS Monocytes 0.8 10^3/ul (0-0.8); ABS Neutrophils 4.4 10^3/ul (1.5-7.7); Eosinophil % 3.6 %; Lymphocyte % 18.7 %; Mean Platelet Volume 7.2 fL (7.4-10.4)
[2022-07-02 09:14] LABS: Calcium 8.4 mg/dL (8.6-10.3); Creatinine, Serum 7.35 mg/dL (0.67-1.17); Potassium 5.6 mmol/L (3.5-5.0); eGFR CKD-EPI 7.6 (>60)
[2022-07-02] MEDS: CMCS:SitaGLIPtin 25mg TAB (NF) 25 MG TAB PO SCH (09:42)
[2022-07-02] MEDS: Heparin 5000 UNITS/ML 1 mL VIAL SUBCUT SCH ×2 (09:44→22:10)
[2022-07-02] MEDS: Heparin 1,000 UNIT/ML 10 ml (10,000 UNITS) CATHLAB/DIALYSIS DIALYSIS SCH ×4 (13:50→17:50)
[2022-07-02] MEDS: Polyethylene Glycol 3350 17 GM PACKET PO SCH ×2 (14:45→22:09)
[2022-07-02] MEDS: Insulin GLARGINE 100 un/ml 10 ml VIAL SUBCUT SCH (22:09)
[2022-07-03] MEDS: Polyethylene Glycol 3350 17 GM PACKET PO SCH ×2 (07:49→22:03)
[2022-07-03] MEDS: Heparin 5000 UNITS/ML 1 mL VIAL SUBCUT SCH ×2 (07:50→22:04)
[2022-07-03] MEDS: CMCS:SitaGLIPtin 25mg TAB (NF) 25 MG TAB PO SCH (07:51)
[2022-07-03] MEDS: Insulin GLARGINE 100 un/ml 10 ml VIAL SUBCUT SCH (22:03)
[2022-07-04] MEDS: CMCS:SitaGLIPtin 25mg TAB (NF) 25 MG TAB PO SCH (08:48)
[2022-07-04] MEDS: Heparin 1,000 UNIT/ML 10 ml (10,000 UNITS) CATHLAB/DIALYSIS DIALYSIS SCH ×4 (16:07→19:11)
[2022-07-04] MEDS: Polyethylene Glycol 3350 17 GM PACKET PO SCH ×2 (21:43→22:04)
[2022-07-04] MEDS: Insulin GLARGINE 100 un/ml 10 ml VIAL SUBCUT SCH (22:01)
[2022-07-05] MEDS: Polyethylene Glycol 3350 17 GM PACKET PO SCH ×2 (09:18→20:04)
[2022-07-05] MEDS: CMCS:SitaGLIPtin 25mg TAB (NF) 25 MG TAB PO SCH (09:22)
[2022-07-05] MEDS: Insulin GLARGINE 100 un/ml 10 ml VIAL SUBCUT SCH (20:09)
[2022-07-06] MEDS: CMCS:SitaGLIPtin 25mg TAB (NF) 25 MG TAB PO SCH (08:34)
[2022-07-06] MEDS: Polyethylene Glycol 3350 17 GM PACKET PO SCH ×2 (08:34→19:40)
[2022-07-06] MEDS: Heparin 1,000 UNIT/ML 10 ml (10,000 UNITS) CATHLAB/DIALYSIS DIALYSIS SCH ×4 (09:16→13:10)
[2022-07-06 13:04] LABS: Hepatitis B Surface Ab Immune (Immune)
[2022-07-06 14:31] LABS: Hepatitis B Surface Antigen Nonreactive (Nonreactive)
[2022-07-06 14:36] LABS: Hepatitis B Core IgM Nonreactive (Nonreactive)
[2022-07-06] MEDS: Insulin GLARGINE 100 un/ml 10 ml VIAL SUBCUT SCH (19:43)
[2022-07-07] MEDS: Polyethylene Glycol 3350 17 GM PACKET PO SCH ×2 (08:47→19:43)
[2022-07-07] MEDS: CMCS:SitaGLIPtin 25mg TAB (NF) 25 MG TAB PO SCH (08:49)
[2022-07-07] MEDS: Insulin GLARGINE 100 un/ml 10 ml VIAL SUBCUT SCH (19:43)
[2022-07-08] MEDS: Polyethylene Glycol 3350 17 GM PACKET PO SCH ×2 (08:56→20:58)
[2022-07-08] MEDS: CMCS:SitaGLIPtin 25mg TAB (NF) 25 MG TAB PO SCH (08:59)
[2022-07-08] MEDS: Insulin GLARGINE 100 un/ml 10 ml VIAL SUBCUT SCH (20:58)
[2022-07-09] MEDS: CMCS:SitaGLIPtin 25mg TAB (NF) 25 MG TAB PO SCH (09:12)
[2022-07-09] MEDS: Polyethylene Glycol 3350 17 GM PACKET PO SCH ×2 (10:42→21:14)
[2022-07-09] MEDS: Heparin 1,000 UNIT/ML 10 ml (10,000 UNITS) CATHLAB/DIALYSIS DIALYSIS SCH ×5 (14:46→18:23)
[2022-07-09] MEDS: Insulin GLARGINE 100 un/ml 10 ml VIAL SUBCUT SCH (21:13)
[2022-07-10] MEDS: Polyethylene Glycol 3350 17 GM PACKET PO SCH ×2 (09:19→20:56)
[2022-07-10] MEDS: CMCS:SitaGLIPtin 25mg TAB (NF) 25 MG TAB PO SCH (09:25)
[2022-07-10] MEDS: Insulin GLARGINE 100 un/ml 10 ml VIAL SUBCUT SCH (20:56)
[2022-07-11] MEDS: CMCS:SitaGLIPtin 25mg TAB (NF) 25 MG TAB PO SCH (08:39)
[2022-07-11] MEDS: Polyethylene Glycol 3350 17 GM PACKET PO SCH ×2 (12:26→20:16)
[2022-07-11] MEDS: Heparin 1,000 UNIT/ML 10 ml (10,000 UNITS) CATHLAB/DIALYSIS DIALYSIS SCH ×4 (15:12→18:19)
[2022-07-11] MEDS: Insulin GLARGINE 100 un/ml 10 ml VIAL SUBCUT SCH (20:16)
[2022-07-12] MEDS: Polyethylene Glycol 3350 17 GM PACKET PO SCH ×2 (08:34→20:52)
[2022-07-12] MEDS: CMCS:SitaGLIPtin 25mg TAB (NF) 25 MG TAB PO SCH (08:35)
[2022-07-12] MEDS: Insulin GLARGINE 100 un/ml 10 ml VIAL SUBCUT SCH (20:52)
[2022-07-13] MEDS: CMCS:SitaGLIPtin 25mg TAB (NF) 25 MG TAB PO SCH (08:52)
[2022-07-13] MEDS: Polyethylene Glycol 3350 17 GM PACKET PO SCH ×2 (08:53→20:22)
[2022-07-13] MEDS: Heparin 1,000 UNIT/ML 10 ml (10,000 UNITS) CATHLAB/DIALYSIS DIALYSIS SCH ×4 (15:35→19:30)
[2022-07-13] MEDS: Insulin GLARGINE 100 un/ml 10 ml VIAL SUBCUT SCH (20:21)
[2022-07-14] MEDS: Polyethylene Glycol 3350 17 GM PACKET PO SCH ×2 (10:13→20:02)
[2022-07-14] MEDS: CMCS:SitaGLIPtin 25mg TAB (NF) 25 MG TAB PO SCH (10:19)
[2022-07-14] MEDS: Insulin GLARGINE 100 un/ml 10 ml VIAL SUBCUT SCH (20:03)
[2022-07-15] MEDS: Polyethylene Glycol 3350 17 GM PACKET PO SCH ×2 (08:34→21:09)
[2022-07-15] MEDS: CMCS:SitaGLIPtin 25mg TAB (NF) 25 MG TAB PO SCH (08:34)
[2022-07-15] MEDS: Insulin GLARGINE 100 un/ml 10 ml VIAL SUBCUT SCH (21:09)
[2022-07-16 08:36] LABS: ABS Basophils 0.1 10^3/uL (0.0-0.1); ABS Eosinophils 0.6 10^3/uL (0.0-0.5); ABS Lymphocytes 1.6 10^3/uL (1.0-4.8); ABS Monocytes 0.7 10^3/uL (0.0-1.1); ABS Neutrophils 6.7 10^3/uL (1.5-7.6); ABS Nucleated RBC 0.01 10^3/ul; Eosinophil % 6.3 %; Hematocrit 20.1 % (38-53); Hemoglobin 6.6 g/dL (13.2-16.3); Lymphocyte % 16.5 %; Mean Corpuscular Hemoglobin 29.2 pg (27-33); Mean Corpuscular Hgb Conc 32.8 g/dL (31-36); Mean Corpuscular Volume 88.8 fL (80-97); Mean Platelet Volume 7.4 fL (7.5-11.2); Nucleated Red Blood Cells % 0.1 /100 WBC (0.0-0.4); Platelet Count 342 10^3/uL (150-450); Red Blood Count 2.26 10^6/uL (4.06-5.63); Red Cell Distribution Width 16.6 % (12-17); White Blood Count 9.8 10^3/uL (3.6-10.2)
[2022-07-16] MEDS: CMCS:SitaGLIPtin 25mg TAB (NF) 25 MG TAB PO SCH (08:46)
[2022-07-16 09:07] LABS: Calcium (PTH Intact) 7.2 mg/dL (8.6-10.3)
[2022-07-16 09:10] LABS: Calcium 7.3 mg/dL (8.6-10.3); Creatinine, Serum 7.09 mg/dL (0.67-1.17); Magnesium 1.5 mg/dL (1.9-2.7); Phosphorus 8.2 mg/dL (2.5-5.0); Potassium 5.6 mmol/L (3.5-5.0)
[2022-07-16] MEDS: Polyethylene Glycol 3350 17 GM PACKET PO SCH ×2 (10:10→20:08)
[2022-07-16 12:09] LABS: Hematocrit 21.1 % (38-53)
[2022-07-16] MEDS: Heparin 1,000 UNIT/ML 10 ml (10,000 UNITS) CATHLAB/DIALYSIS DIALYSIS SCH ×4 (13:01→16:44)
[2022-07-16] MEDS: Insulin GLARGINE 100 un/ml 10 ml VIAL SUBCUT SCH (20:08)
[2022-07-17] MEDS: CMCS:SitaGLIPtin 25mg TAB (NF) 25 MG TAB PO SCH (08:27)
[2022-07-17] MEDS: Polyethylene Glycol 3350 17 GM PACKET PO SCH ×2 (08:27→21:54)
[2022-07-17] MEDS: Insulin GLARGINE 100 un/ml 10 ml VIAL SUBCUT SCH (21:54)
[2022-07-18] MEDS: CMCS:SitaGLIPtin 25mg TAB (NF) 25 MG TAB PO SCH (08:51)
[2022-07-18] MEDS: Polyethylene Glycol 3350 17 GM PACKET PO SCH ×2 (08:55→20:09)
[2022-07-18] MEDS: Heparin 1,000 UNIT/ML 10 ml (10,000 UNITS) CATHLAB/DIALYSIS DIALYSIS SCH ×5 (15:18→19:34)
[2022-07-18] MEDS: Insulin GLARGINE 100 un/ml 10 ml VIAL SUBCUT SCH (20:09)
[2022-07-19] MEDS: Polyethylene Glycol 3350 17 GM PACKET PO SCH ×2 (09:00→21:25)
[2022-07-19] MEDS: CMCS:SitaGLIPtin 25mg TAB (NF) 25 MG TAB PO SCH (09:01)
[2022-07-19] MEDS: Insulin GLARGINE 100 un/ml 10 ml VIAL SUBCUT SCH (21:25)
[2022-07-20 06:28] LABS: Albumin 2.8 g/dL (3.2-5.2); Albumin/Globulin Ratio 1.2 (1-3); Calcium 7.2 mg/dL (8.6-10.3); Creatinine, Serum 6.21 mg/dL (0.67-1.17); Globulin 2.4 g/dL (2-4); Hematocrit 18.9 % (38-53); Hemoglobin 6.4 g/dL (13.2-16.3); Mean Corpuscular Hemoglobin 29.9 pg (27-33); Mean Corpuscular Hgb Conc 33.9 g/dL (31-36); Mean Corpuscular Volume 88.4 fL (80-97); Mean Platelet Volume 7.6 fL (7.5-11.2); Platelet Count 281 10^3/uL (150-450); Potassium 4.9 mmol/L (3.5-5.0); Red Blood Count 2.14 10^6/uL (4.06-5.63); Red Cell Distribution Width 16.4 % (12-17); Total Bilirubin 0.3 mg/dL (0.2-1.0); Total Protein 5.2 g/dL (6.4-8.9); eGFR CKD-EPI 9.3 (>60)
[2022-07-20] MEDS: CMCS:SitaGLIPtin 25mg TAB (NF) 25 MG TAB PO SCH (08:03)
[2022-07-20] MEDS: Polyethylene Glycol 3350 17 GM PACKET PO SCH ×2 (08:06→20:19)
[2022-07-20] MEDS: Heparin 1,000 UNIT/ML 10 ml (10,000 UNITS) CATHLAB/DIALYSIS DIALYSIS SCH ×5 (11:18→14:56)
[2022-07-20] MEDS: Insulin GLARGINE 100 un/ml 10 ml VIAL SUBCUT SCH (20:19)
[2022-07-21] MEDS: Polyethylene Glycol 3350 17 GM PACKET PO SCH ×2 (09:00→20:18)
[2022-07-21] MEDS: CMCS:SitaGLIPtin 25mg TAB (NF) 25 MG TAB PO SCH (09:01)
[2022-07-21] MEDS ORDERED: Albumin Human 25% 25 GM/100 ML BTL IV PRN (15:10)
[2022-07-21] MEDS ORDERED: NS 0.9% 1000 ml BAG 100 ML IV PRN (15:10)
[2022-07-21] MEDS ORDERED: NS 0.9% 1000 ml BAG 200 ML IV PRN (15:10)
[2022-07-21] MEDS: Insulin GLARGINE 100 un/ml 10 ml VIAL SUBCUT SCH (20:22)
[2022-07-22] MEDS: Polyethylene Glycol 3350 17 GM PACKET PO SCH ×2 (08:57→20:25)
[2022-07-22] MEDS: CMCS:SitaGLIPtin 25mg TAB (NF) 25 MG TAB PO SCH (08:59)
[2022-07-22] MEDS: Insulin GLARGINE 100 un/ml 10 ml VIAL SUBCUT SCH (20:25)
[2022-07-23] MEDS: CMCS:SitaGLIPtin 25mg TAB (NF) 25 MG TAB PO SCH (08:58)
[2022-07-23] MEDS: Polyethylene Glycol 3350 17 GM PACKET PO SCH ×2 (09:00→20:17)
[2022-07-23] MEDS: Heparin 1,000 UNIT/ML 10 ml (10,000 UNITS) CATHLAB/DIALYSIS DIALYSIS SCH ×5 (11:09→14:57)
[2022-07-23] MEDS: Insulin GLARGINE 100 un/ml 10 ml VIAL SUBCUT SCH (20:17)
[2022-07-24] MEDS: CMCS:SitaGLIPtin 25mg TAB (NF) 25 MG TAB PO SCH (08:31)
[2022-07-24] MEDS: Polyethylene Glycol 3350 17 GM PACKET PO SCH ×2 (08:32→20:55)
[2022-07-24 08:40] LABS: Hematocrit 27.7 % (38-53); Hemoglobin 9.4 g/dL (13.2-16.3); Mean Corpuscular Hemoglobin 30.3 pg (27-33); Mean Corpuscular Hgb Conc 33.9 g/dL (31-36); Mean Corpuscular Volume 89.6 fL (80-97); Mean Platelet Volume 7.6 fL (7.5-11.2); Platelet Count 265 10^3/uL (150-450); Red Blood Count 3.09 10^6/uL (4.06-5.63); Red Cell Distribution Width 16.7 % (12-17); White Blood Count 8.7 10^3/uL (3.6-10.2)
[2022-07-24] MEDS: Heparin 1,000 UNIT/ML 10 ml (10,000 UNITS) CATHLAB/DIALYSIS DIALYSIS ONE ×4 (14:47→17:40)
[2022-07-24] MEDS: Insulin GLARGINE 100 un/ml 10 ml VIAL SUBCUT SCH (20:57)
[2022-07-25] MEDS: CMCS:SitaGLIPtin 25mg TAB (NF) 25 MG TAB PO SCH (09:18)
[2022-07-25] MEDS: Polyethylene Glycol 3350 17 GM PACKET PO SCH ×2 (09:23→20:56)
[2022-07-25] MEDS: Heparin 1,000 UNIT/ML 10 ml (10,000 UNITS) CATHLAB/DIALYSIS DIALYSIS SCH ×5 (10:50→13:51)
[2022-07-25] MEDS: Insulin GLARGINE 100 un/ml 10 ml VIAL SUBCUT SCH (21:02)
[2022-07-26] MEDS: Polyethylene Glycol 3350 17 GM PACKET PO SCH ×2 (09:56→20:49)
[2022-07-26] MEDS: CMCS:SitaGLIPtin 25mg TAB (NF) 25 MG TAB PO SCH (09:58)
[2022-07-26] MEDS: Insulin GLARGINE 100 un/ml 10 ml VIAL SUBCUT SCH (20:46)
[2022-07-27] MEDS: CMCS:SitaGLIPtin 25mg TAB (NF) 25 MG TAB PO SCH (07:54)
[2022-07-27] MEDS: Heparin 1,000 UNIT/ML 10 ml (10,000 UNITS) CATHLAB/DIALYSIS DIALYSIS SCH ×5 (08:20→13:10)
[2022-07-27] MEDS: Polyethylene Glycol 3350 17 GM PACKET PO SCH ×2 (14:30→20:09)
[2022-07-27] MEDS: Insulin GLARGINE 100 un/ml 10 ml VIAL SUBCUT SCH (20:10)
[2022-07-28] MEDS: CMCS:SitaGLIPtin 25mg TAB (NF) 25 MG TAB PO SCH (08:40)
[2022-07-28] MEDS: Polyethylene Glycol 3350 17 GM PACKET PO SCH ×2 (08:41→20:10)
[2022-07-28] MEDS: Insulin GLARGINE 100 un/ml 10 ml VIAL SUBCUT SCH (20:10)
[2022-07-29] MEDS: CMCS:SitaGLIPtin 25mg TAB (NF) 25 MG TAB PO SCH (08:54)
[2022-07-29] MEDS: Polyethylene Glycol 3350 17 GM PACKET PO SCH ×2 (08:55→21:00)
[2022-07-29] MEDS: Insulin GLARGINE 100 un/ml 10 ml VIAL SUBCUT SCH (20:59)
[2022-07-30 06:18] LABS: Mean Corpuscular Hemoglobin 30.2 pg (27-33); Mean Corpuscular Hgb Conc 33.3 g/dL (31-36); Mean Corpuscular Volume 90.7 fL (80-97); Mean Platelet Volume 8.2 fL (7.5-11.2); Platelet Count 248 10^3/uL (150-450); Red Blood Count 2.98 10^6/uL (4.06-5.63); Red Cell Distribution Width 16.8 % (12-17); White Blood Count 7.8 10^3/uL (3.6-10.2)
[2022-07-30 06:41] LABS: Calcium 7.1 mg/dL (8.6-10.3); Creatinine, Serum 7.78 mg/dL (0.67-1.17); Potassium 5.8 mmol/L (3.5-5.0); eGFR CKD-EPI 7.1 (>60)
[2022-07-30] MEDS: CMCS:SitaGLIPtin 25mg TAB (NF) 25 MG TAB PO SCH (08:44)
[2022-07-30] MEDS: Polyethylene Glycol 3350 17 GM PACKET PO SCH ×3 (08:45→20:18)
[2022-07-30] MEDS: Heparin 1,000 UNIT/ML 10 ml (10,000 UNITS) CATHLAB/DIALYSIS DIALYSIS SCH ×4 (10:12→13:50)
[2022-07-30] MEDS: Insulin GLARGINE 100 un/ml 10 ml VIAL SUBCUT SCH (20:18)
[2022-07-31] MEDS: Polyethylene Glycol 3350 17 GM PACKET PO SCH ×2 (08:31→20:55)
[2022-07-31] MEDS: CMCS:SitaGLIPtin 25mg TAB (NF) 25 MG TAB PO SCH (08:32)
[2022-07-31] MEDS: Insulin GLARGINE 100 un/ml 10 ml VIAL SUBCUT SCH (20:57)
[2022-08-01] MEDS: Polyethylene Glycol 3350 17 GM PACKET PO SCH ×2 (07:27→20:23)
[2022-08-01] MEDS: CMCS:SitaGLIPtin 25mg TAB (NF) 25 MG TAB PO SCH (08:46)
[2022-08-01] MEDS: Heparin 1,000 UNIT/ML 10 ml (10,000 UNITS) CATHLAB/DIALYSIS DIALYSIS SCH ×4 (09:40→13:23)
[2022-08-01 18:33] LABS: High Sensitivity Troponin 1 Hr 11 pg/mL (<20)
[2022-08-01] MEDS: Insulin GLARGINE 100 un/ml 10 ml VIAL SUBCUT SCH (20:23)
[2022-08-02] MEDS: CMCS:SitaGLIPtin 25mg TAB (NF) 25 MG TAB PO SCH (09:13)
[2022-08-02] MEDS: Polyethylene Glycol 3350 17 GM PACKET PO SCH ×2 (09:14→20:48)
[2022-08-02] MEDS: Insulin GLARGINE 100 un/ml 10 ml VIAL SUBCUT SCH (20:48)
[2022-08-03] MEDS: CMCS:SitaGLIPtin 25mg TAB (NF) 25 MG TAB PO SCH (08:55)
[2022-08-03] MEDS: Heparin 1,000 UNIT/ML 10 ml (10,000 UNITS) CATHLAB/DIALYSIS DIALYSIS SCH ×5 (09:40→13:56)
[2022-08-03] MEDS: Polyethylene Glycol 3350 17 GM PACKET PO SCH ×2 (14:36→21:00)
[2022-08-03] MEDS: Insulin GLARGINE 100 un/ml 10 ml VIAL SUBCUT SCH (20:56)
[2022-08-04] MEDS: Polyethylene Glycol 3350 17 GM PACKET PO SCH ×2 (10:06→20:06)
[2022-08-04] MEDS: CMCS:SitaGLIPtin 25mg TAB (NF) 25 MG TAB PO SCH (10:07)
[2022-08-04] MEDS: Insulin GLARGINE 100 un/ml 10 ml VIAL SUBCUT SCH (20:13)
[2022-08-05] MEDS: Polyethylene Glycol 3350 17 GM PACKET PO SCH ×2 (09:04→20:21)
[2022-08-05] MEDS: CMCS:SitaGLIPtin 25mg TAB (NF) 25 MG TAB PO SCH (09:06)
[2022-08-05] MEDS: Insulin GLARGINE 100 un/ml 10 ml VIAL SUBCUT SCH (20:22)
[2022-08-06 06:58] LABS: ABS Basophils 0.2 10^3/uL (0.0-0.1); ABS Eosinophils 1.1 10^3/uL (0.0-0.5); ABS Lymphocytes 1.5 10^3/uL (1.0-4.8); ABS Monocytes 0.8 10^3/uL (0.0-1.1); ABS Neutrophils 4.2 10^3/uL (1.5-7.6); Eosinophil % 13.8 %; Hematocrit 32.4 % (38-53); Hemoglobin 10.5 g/dL (13.2-16.3); Lymphocyte % 19.7 %; Mean Corpuscular Hemoglobin 29.5 pg (27-33); Mean Corpuscular Hgb Conc 32.5 g/dL (31-36); Mean Corpuscular Volume 90.9 fL (80-97); Mean Platelet Volume 8.1 fL (7.5-11.2); Platelet Count 260 10^3/uL (150-450); Red Blood Count 3.57 10^6/uL (4.06-5.63); Red Cell Distribution Width 17.2 % (12-17); White Blood Count 7.7 10^3/uL (3.6-10.2)
[2022-08-06 07:15] LABS: Albumin 3.9 g/dL (3.2-5.2); Albumin/Globulin Ratio 1.3 (1-3); Calcium 7.2 mg/dL (8.6-10.3); Creatinine, Serum 7.12 mg/dL (0.67-1.17); Potassium 5.7 mmol/L (3.5-5.0); Total Bilirubin 0.5 mg/dL (0.2-1.0); Total Protein 6.9 g/dL (6.4-8.9); eGFR CKD-EPI 7.9 (>60)
[2022-08-06 07:29] LABS: Calcium (PTH Intact) 7.4 mg/dL (8.6-10.3)
[2022-08-06 07:33] LABS: Ferritin 35.5 ng/mL (24-336)
[2022-08-06 07:39] LABS: Vitamin D Total 25(OH) 25.3 ng/mL (20-50)
[2022-08-06] MEDS: CMCS:SitaGLIPtin 25mg TAB (NF) 25 MG TAB PO SCH (08:51)
[2022-08-06] MEDS: Polyethylene Glycol 3350 17 GM PACKET PO SCH ×2 (08:52→20:17)
[2022-08-06] MEDS: Heparin 1,000 UNIT/ML 10 ml (10,000 UNITS) CATHLAB/DIALYSIS DIALYSIS SCH ×5 (10:27→14:35)
[2022-08-06] MEDS: Insulin GLARGINE 100 un/ml 10 ml VIAL SUBCUT SCH (20:17)
[2022-08-07] MEDS: Polyethylene Glycol 3350 17 GM PACKET PO SCH ×2 (08:49→20:06)
[2022-08-07] MEDS: CMCS:SitaGLIPtin 25mg TAB (NF) 25 MG TAB PO SCH (09:03)
[2022-08-07 14:18] LABS: Hepatitis B Surface Antigen Nonreactive (Nonreactive)
[2022-08-07 14:23] LABS: Hepatitis B Core IgM Nonreactive (Nonreactive)
[2022-08-07 14:35] LABS: Hepatitis B Surface Ab Immune (Immune)
[2022-08-07] MEDS: Insulin GLARGINE 100 un/ml 10 ml VIAL SUBCUT SCH (20:06)
[2022-08-08] MEDS: CMCS:SitaGLIPtin 25mg TAB (NF) 25 MG TAB PO SCH (07:44)
[2022-08-08] MEDS: Polyethylene Glycol 3350 17 GM PACKET PO SCH ×3 (07:44→20:12)
[2022-08-08] MEDS: Heparin 1,000 UNIT/ML 10 ml (10,000 UNITS) CATHLAB/DIALYSIS DIALYSIS SCH ×4 (09:55→13:35)
[2022-08-08] MEDS: Insulin GLARGINE 100 un/ml 10 ml VIAL SUBCUT SCH (20:22)
[2022-08-09] MEDS: CMCS:SitaGLIPtin 25mg TAB (NF) 25 MG TAB PO SCH (09:10)
[2022-08-09] MEDS: Polyethylene Glycol 3350 17 GM PACKET PO SCH ×2 (09:10→20:45)
[2022-08-09 15:09] LABS: TB1 Ag minus Nil Result 0.11 IU/mL; TB2 Ag minus Nil Result 0.07 IU/mL
[2022-08-09 15:11] LABS: QuantiferonTb Gold Plus Result Negative (Negative)
[2022-08-09] MEDS: Insulin GLARGINE 100 un/ml 10 ml VIAL SUBCUT SCH (20:45)
[2022-08-10] MEDS: Polyethylene Glycol 3350 17 GM PACKET PO SCH ×2 (07:48→20:15)
[2022-08-10] MEDS: CMCS:SitaGLIPtin 25mg TAB (NF) 25 MG TAB PO SCH (08:49)
[2022-08-10] MEDS: Heparin 1,000 UNIT/ML 10 ml (10,000 UNITS) CATHLAB/DIALYSIS DIALYSIS SCH ×3 (09:55→12:02)
[2022-08-10] MEDS: Insulin GLARGINE 100 un/ml 10 ml VIAL SUBCUT SCH (20:15)
[2022-08-11] MEDS: CMCS:SitaGLIPtin 25mg TAB (NF) 25 MG TAB PO SCH (09:03)
[2022-08-11] MEDS: Polyethylene Glycol 3350 17 GM PACKET PO SCH ×2 (09:03→20:04)
[2022-08-11] MEDS: Insulin GLARGINE 100 un/ml 10 ml VIAL SUBCUT SCH (19:57)
[2022-08-12] MEDS: Polyethylene Glycol 3350 17 GM PACKET PO SCH ×2 (09:18→20:50)
[2022-08-12] MEDS: CMCS:SitaGLIPtin 25mg TAB (NF) 25 MG TAB PO SCH (09:21)
[2022-08-12] MEDS: Insulin GLARGINE 100 un/ml 10 ml VIAL SUBCUT SCH (20:48)
[2022-08-13 07:36] LABS: ABS Basophils 0.3 10^3/uL (0.0-0.1); ABS Eosinophils 0.9 10^3/uL (0.0-0.5); ABS Lymphocytes 1.3 10^3/uL (1.0-4.8); ABS Monocytes 0.8 10^3/uL (0.0-1.1); ABS Neutrophils 5.7 10^3/uL (1.5-7.6); Eosinophil % 10.3 %; Hematocrit 31.7 % (38-53); Hemoglobin 10.2 g/dL (13.2-16.3); Lymphocyte % 14.8 %; Mean Corpuscular Hemoglobin 28.7 pg (27-33); Mean Corpuscular Hgb Conc 32.1 g/dL (31-36); Mean Corpuscular Volume 89.4 fL (80-97); Mean Platelet Volume 7.7 fL (7.5-11.2); Platelet Count 265 10^3/uL (150-450); Red Blood Count 3.55 10^6/uL (4.06-5.63); Red Cell Distribution Width 17.3 % (12-17); White Blood Count 9.1 10^3/uL (3.6-10.2)
[2022-08-13 08:05] LABS: Albumin 3.8 g/dL (3.2-5.2); Albumin/Globulin Ratio 1.5 (1-3); Calcium 6.5 mg/dL (8.6-10.3); Creatinine, Serum 8.34 mg/dL (0.67-1.17); Globulin 2.6 g/dL (2-4); Total Bilirubin 0.4 mg/dL (0.2-1.0); Total Protein 6.4 g/dL (6.4-8.9); eGFR CKD-EPI 6.6 (>60)
[2022-08-13 08:22] LABS: Potassium 6.3 mmol/L (3.5-5.0)
[2022-08-13 08:24] LABS: Ferritin 24.7 ng/mL (24-336)
[2022-08-13] MEDS: Polyethylene Glycol 3350 17 GM PACKET PO SCH ×2 (08:36→21:02)
[2022-08-13] MEDS: CMCS:SitaGLIPtin 25mg TAB (NF) 25 MG TAB PO SCH (08:37)
[2022-08-13] MEDS: Heparin 1,000 UNIT/ML 10 ml (10,000 UNITS) CATHLAB/DIALYSIS DIALYSIS SCH ×4 (10:05→13:06)
[2022-08-13] MEDS ORDERED: Albumin Human 25% 25 GM/100 ML BTL IV PRN (13:34)
[2022-08-13] MEDS ORDERED: Heparin 1,000 UNIT/ML 10 ml (10,000 UNITS) CATHLAB/DIALYSIS DIALYSIS ONE (13:34)
[2022-08-13] MEDS ORDERED: NS 0.9% 1000 ml BAG 100 ML IV PRN (13:34)
[2022-08-13] MEDS ORDERED: NS 0.9% 1000 ml BAG 200 ML IV PRN (13:34)
[2022-08-13] MEDS: Insulin GLARGINE 100 un/ml 10 ml VIAL SUBCUT SCH (21:03)
[2022-08-14] MEDS: CMCS:SitaGLIPtin 25mg TAB (NF) 25 MG TAB PO SCH (11:59)
[2022-08-14] MEDS: Heparin 1,000 UNIT/ML 10 ml (10,000 UNITS) CATHLAB/DIALYSIS DIALYSIS SCH ×4 (15:11→18:35)
[2022-08-14] MEDS: Polyethylene Glycol 3350 17 GM PACKET PO SCH ×2 (20:46→20:53)
[2022-08-14] MEDS: Insulin GLARGINE 100 un/ml 10 ml VIAL SUBCUT SCH (20:53)
[2022-08-15] MEDS: CMCS:SitaGLIPtin 25mg TAB (NF) 25 MG TAB PO SCH (09:44)
[2022-08-15] MEDS: Heparin 1,000 UNIT/ML 10 ml (10,000 UNITS) CATHLAB/DIALYSIS DIALYSIS SCH (18:27)
[2022-08-15] MEDS: Polyethylene Glycol 3350 17 GM PACKET PO SCH (21:05)
[2022-08-15] MEDS: Insulin GLARGINE 100 un/ml 10 ml VIAL SUBCUT SCH (21:05)
[2022-08-15] MEDS ORDERED: Albumin Human 25% 25 GM/100 ML BTL IV PRN (21:20)
[2022-08-15] MEDS ORDERED: NS 0.9% 1000 ml BAG 100 ML IV PRN (21:20)
[2022-08-15] MEDS ORDERED: NS 0.9% 1000 ml BAG 200 ML IV PRN (21:20)
[2022-08-16 06:01] LABS: ABS Basophils 0.1 10^3/uL (0.0-0.1); ABS Lymphocytes 1.7 10^3/uL (1.0-4.8); ABS Monocytes 1.4 10^3/uL (0.0-1.1); ABS Neutrophils 3.9 10^3/uL (1.5-7.6); ABS Nucleated RBC 0.01 10^3/ul; Eosinophil % 12.1 %; Hematocrit 32.5 % (38-53); Hemoglobin 10.4 g/dL (13.2-16.3); Mean Corpuscular Hemoglobin 27.8 pg (27-33); Mean Corpuscular Volume 86.7 fL (80-97); Nucleated Red Blood Cells % 0.1 /100 WBC (0.0-0.4); Platelet Count 230 10^3/uL (150-450); Red Blood Count 3.74 10^6/uL (4.06-5.63); White Blood Count 8.2 10^3/uL (3.6-10.2)
[2022-08-16 06:17] LABS: Calcium 7.2 mg/dL (8.6-10.3); Creatinine, Serum 6.72 mg/dL (0.67-1.17); Potassium 5.2 mmol/L (3.5-5.0); eGFR CKD-EPI 8.5 (>60)
[2022-08-16] MEDS: Polyethylene Glycol 3350 17 GM PACKET PO SCH ×2 (07:49→19:28)
[2022-08-16] MEDS: CMCS:SitaGLIPtin 25mg TAB (NF) 25 MG TAB PO SCH (08:22)
[2022-08-16] MEDS: Heparin 1,000 UNIT/ML 10 ml (10,000 UNITS) CATHLAB/DIALYSIS DIALYSIS SCH ×5 (10:55→19:56)
[2022-08-16] MEDS: Insulin GLARGINE 100 un/ml 10 ml VIAL SUBCUT SCH (19:28)
[2022-08-17] MEDS: CMCS:SitaGLIPtin 25mg TAB (NF) 25 MG TAB PO SCH (08:53)
[2022-08-17] MEDS: Polyethylene Glycol 3350 17 GM PACKET PO PRN (08:53)
[2022-08-17] MEDS: Heparin 1,000 UNIT/ML 10 ml (10,000 UNITS) CATHLAB/DIALYSIS DIALYSIS ONE ×4 (10:10→13:35)
[2022-08-17] MEDS: Insulin GLARGINE 100 un/ml 10 ml VIAL SUBCUT SCH (19:49)
[2022-08-17] MEDS: Polyethylene Glycol 3350 17 GM PACKET PO SCH (19:49)
[2022-08-18] MEDS: Polyethylene Glycol 3350 17 GM PACKET PO PRN (09:24)
[2022-08-18] MEDS: CMCS:SitaGLIPtin 25mg TAB (NF) 25 MG TAB PO SCH (09:27)
[2022-08-18] MEDS: Heparin 1,000 UNIT/ML 10 ml (10,000 UNITS) CATHLAB/DIALYSIS DIALYSIS SCH ×2 (09:36→20:27)
[2022-08-18] MEDS: Polyethylene Glycol 3350 17 GM PACKET PO SCH (20:03)
[2022-08-18] MEDS: Insulin GLARGINE 100 un/ml 10 ml VIAL SUBCUT SCH (20:03)
[2022-08-19] MEDS: CMCS:SitaGLIPtin 25mg TAB (NF) 25 MG TAB PO SCH (09:00)
[2022-08-19] MEDS: Polyethylene Glycol 3350 17 GM PACKET PO PRN (09:00)
[2022-08-19] MEDS: Polyethylene Glycol 3350 17 GM PACKET PO SCH (20:12)
[2022-08-19] MEDS: Insulin GLARGINE 100 un/ml 10 ml VIAL SUBCUT SCH (20:12)
[2022-08-20 06:16] LABS: Hematocrit 32.2 % (38-53); Hemoglobin 10.4 g/dL (13.2-16.3); Mean Corpuscular Hemoglobin 27.9 pg (27-33); Mean Corpuscular Hgb Conc 32.3 g/dL (31-36); Mean Corpuscular Volume 86.5 fL (80-97); Platelet Count 250 10^3/uL (150-450); Red Blood Count 3.73 10^6/uL (4.06-5.63); Red Cell Distribution Width 17.3 % (12-17); White Blood Count 8.1 10^3/uL (3.6-10.2)
[2022-08-20 06:27] LABS: Anion Gap 18 mmol/L (2-16); CO2 Carbon Dioxide 18 mmol/L (22-32); Calcium 6.9 mg/dL (8.6-10.3); Chloride 97 mmol/L (101-111); Creatinine, Serum 7.71 mg/dL (0.67-1.17); Glucose 94 mg/dL (70-100); Phosphorus 10.9 mg/dL (2.5-5.0); Potassium 5.4 mmol/L (3.5-5.0); Sodium 133 mmol/L (135-145); eGFR CKD-EPI 7.2 (>60)
[2022-08-20 06:43] LABS: Blood Urea Nitrogen 137 mg/dL (6-24)
[2022-08-20 07:03] LABS: Iron < 20 ug/dL (50-212)
[2022-08-20 07:22] LABS: Ferritin 18.9 ng/mL (24-336)
[2022-08-20] MEDS: Heparin 1,000 UNIT/ML 10 ml (10,000 UNITS) CATHLAB/DIALYSIS DIALYSIS SCH ×5 (08:25→12:35)
[2022-08-20] MEDS: CMCS:SitaGLIPtin 25mg TAB (NF) 25 MG TAB PO SCH (13:06)
[2022-08-20] MEDS: Ferric Gluconate IV 125 MG in NS 0.9% 100 ml BAG 100 ML IVPB SCH (14:17)
[2022-08-20] MEDS: Insulin GLARGINE 100 un/ml 10 ml VIAL SUBCUT SCH (20:47)
[2022-08-20] MEDS: Polyethylene Glycol 3350 17 GM PACKET PO SCH (20:47)
[2022-08-21] MEDS: Polyethylene Glycol 3350 17 GM PACKET PO PRN (08:52)
[2022-08-21] MEDS: CMCS:SitaGLIPtin 25mg TAB (NF) 25 MG TAB PO SCH (08:52)
[2022-08-21] MEDS: Ferric Gluconate IV 125 MG in NS 0.9% 100 ml BAG 100 ML IVPB SCH (09:31)
[2022-08-21] MEDS: Heparin 1,000 UNIT/ML 10 ml (10,000 UNITS) CATHLAB/DIALYSIS DIALYSIS SCH (09:38)
[2022-08-21] MEDS: Insulin GLARGINE 100 un/ml 10 ml VIAL SUBCUT SCH (21:12)
[2022-08-21] MEDS: Polyethylene Glycol 3350 17 GM PACKET PO SCH (21:12)
[2022-08-22] MEDS: Heparin 1,000 UNIT/ML 10 ml (10,000 UNITS) CATHLAB/DIALYSIS DIALYSIS SCH ×5 (07:46→13:52)
[2022-08-22] MEDS: CMCS:SitaGLIPtin 25mg TAB (NF) 25 MG TAB PO SCH (08:37)
[2022-08-22] MEDS: Ferric Gluconate IV 125 MG in NS 0.9% 100 ml BAG 100 ML IVPB SCH (08:52)
[2022-08-22] MEDS: Polyethylene Glycol 3350 17 GM PACKET PO SCH (20:11)
[2022-08-22] MEDS: Insulin GLARGINE 100 un/ml 10 ml VIAL SUBCUT SCH (20:11)
[2022-08-23] MEDS: Polyethylene Glycol 3350 17 GM PACKET PO PRN (08:20)
[2022-08-23] MEDS: CMCS:SitaGLIPtin 25mg TAB (NF) 25 MG TAB PO SCH (08:21)
[2022-08-23] MEDS: Ferric Gluconate IV 125 MG in NS 0.9% 100 ml BAG 100 ML IVPB SCH (08:22)
[2022-08-23] MEDS: Heparin 1,000 UNIT/ML 10 ml (10,000 UNITS) CATHLAB/DIALYSIS DIALYSIS SCH (10:29)
[2022-08-23] MEDS: Insulin GLARGINE 100 un/ml 10 ml VIAL SUBCUT SCH (20:27)
[2022-08-23] MEDS: Polyethylene Glycol 3350 17 GM PACKET PO SCH (20:28)
[2022-08-24] MEDS: CMCS:SitaGLIPtin 25mg TAB (NF) 25 MG TAB PO SCH (08:21)
[2022-08-24] MEDS: Ferric Gluconate IV 125 MG in NS 0.9% 100 ml BAG 100 ML IVPB SCH (08:23)
[2022-08-24] MEDS ORDERED: NS 0.9% 1000 ml BAG 100 ML IV PRN (09:00)
[2022-08-24] MEDS ORDERED: NS 0.9% 1000 ml BAG 200 ML IV PRN (09:00)
[2022-08-24] MEDS ORDERED: Heparin 1,000 UNIT/ML 10 ml (10,000 UNITS) CATHLAB/DIALYSIS DIALYSIS SCH (09:00)
[2022-08-24] MEDS: Heparin 1,000 UNIT/ML 10 ml (10,000 UNITS) CATHLAB/DIALYSIS DIALYSIS SCH ×5 (09:49→13:53)
[2022-08-24] MEDS: Polyethylene Glycol 3350 17 GM PACKET PO SCH (20:04)
[2022-08-24] MEDS: Insulin GLARGINE 100 un/ml 10 ml VIAL SUBCUT SCH (20:04)
[2022-08-25] MEDS: Polyethylene Glycol 3350 17 GM PACKET PO PRN (09:43)
[2022-08-25] MEDS: CMCS:SitaGLIPtin 25mg TAB (NF) 25 MG TAB PO SCH (09:44)
[2022-08-25] MEDS: Ferric Gluconate IV 125 MG in NS 0.9% 100 ml BAG 100 ML IVPB SCH (10:08)
[2022-08-25] MEDS: Polyethylene Glycol 3350 17 GM PACKET PO SCH (19:56)
[2022-08-25] MEDS: Insulin GLARGINE 100 un/ml 10 ml VIAL SUBCUT SCH (19:57)
[2022-08-26] MEDS: Polyethylene Glycol 3350 17 GM PACKET PO PRN (09:51)
[2022-08-26] MEDS: CMCS:SitaGLIPtin 25mg TAB (NF) 25 MG TAB PO SCH (09:54)
[2022-08-26] MEDS: Polyethylene Glycol 3350 17 GM PACKET PO SCH (20:17)
[2022-08-26] MEDS: Insulin GLARGINE 100 un/ml 10 ml VIAL SUBCUT SCH (20:18)
[2022-08-27 07:34] LABS: Hemoglobin 11.4 g/dL (13.2-16.3); Mean Corpuscular Hemoglobin 28.1 pg (27-33); Mean Corpuscular Hgb Conc 31.8 g/dL (31-36); Mean Corpuscular Volume 88.5 fL (80-97); Mean Platelet Volume 8.2 fL (7.5-11.2); Platelet Count 234 10^3/uL (150-450); Red Blood Count 4.07 10^6/uL (4.06-5.63); Red Cell Distribution Width 20.2 % (12-17); White Blood Count 10.7 10^3/uL (3.6-10.2)
[2022-08-27 07:50] LABS: Calcium 7.6 mg/dL (8.6-10.3); Creatinine, Serum 7.69 mg/dL (0.67-1.17); Phosphorus 8.9 mg/dL (2.5-5.0); Potassium 5.3 mmol/L (3.5-5.0); eGFR CKD-EPI 7.2 (>60)
[2022-08-27 08:28] LABS: Ferritin 128.1 ng/mL (24-336)
[2022-08-27] MEDS: CMCS:SitaGLIPtin 25mg TAB (NF) 25 MG TAB PO SCH (08:37)
[2022-08-27] MEDS: Heparin 1,000 UNIT/ML 10 ml (10,000 UNITS) CATHLAB/DIALYSIS DIALYSIS SCH ×5 (09:21→13:23)
[2022-08-27] MEDS: Insulin GLARGINE 100 un/ml 10 ml VIAL SUBCUT SCH (20:05)
[2022-08-27] MEDS: Polyethylene Glycol 3350 17 GM PACKET PO SCH (20:06)
[2022-08-28 03:49] LABS: ABS Eosinophils 0.4 10^3/uL (0.0-0.5); ABS Lymphocytes 0.4 10^3/uL (1.0-4.8); ABS Monocytes 0.1 10^3/uL (0.0-1.1); ABS Neutrophils 8.1 10^3/uL (1.5-7.6); Eosinophil % 4.4 %; Hematocrit 40.5 % (38-53); Hemoglobin 13.3 g/dL (13.2-16.3); Lymphocyte % 4.9 %; Mean Corpuscular Hemoglobin 28.9 pg (27-33); Mean Corpuscular Hgb Conc 32.8 g/dL (31-36); Platelet Count 202 10^3/uL (150-450); Red Cell Distribution Width 21.1 % (12-17); White Blood Count 9.1 10^3/uL (3.6-10.2)
[2022-08-28 06:45] LABS: Urine Appearance Clear; Urine Bilirubin Negative (Negative); Urine Blood 2+ (Negative); Urine Color Yellow; Urine Glucose 1+(50 mg/dL) (Negative); Urine Ketones Negative (Negative); Urine Nitrite Negative (Negative); Urine Protein 3+(>=500 mg/dL) (Negative); Urine Specific Gravity 1.011 (1.002-1.030); Urine Urobilinogen Negative (Negative)
[2022-08-28 06:47] LABS: Urine Bacteria Absent (Absent); Urine Red Blood Cell 2+(6-10/hpf) (Absent); Urine White Blood Cell Trace(0-5/hpf) (Absent)
[2022-08-28] MEDS: Polyethylene Glycol 3350 17 GM PACKET PO PRN (09:53)
[2022-08-28] MEDS: CMCS:SitaGLIPtin 25mg TAB (NF) 25 MG TAB PO SCH (09:57)
[2022-08-28 13:11] VITALS: BP 134/54
== END 2022-08-28 14:17 | disposition short-term general hospital (02) | DRG 470 ==
LOC: MEDTELE → OBSVTOIN 18:47 → SUATTDRO 18:47 → MEDTELE 08-14 10:50
PROVIDERS: ADMIT Internal Medicine; ATTEND Internal Medicine

== ENCOUNTER 2023-03-17 14:33 | Inpatient (IN) ==
[2023-03-17 15:23] LABS: ABS Basophils 0.1 10^3/uL (0.0-0.1); ABS Eosinophils 0.7 10^3/uL (0.0-0.5); ABS Lymphocytes 0.4 10^3/uL (1.0-4.8); ABS Monocytes 0.6 10^3/uL (0.0-1.1); ABS Neutrophils 7.3 10^3/uL (1.5-7.6); Eosinophil % 7.2 %; Hematocrit 33.9 % (38-53); Hemoglobin 11.2 g/dL (13.2-16.3); Lymphocyte % 4.4 %; Mean Corpuscular Hemoglobin 31.8 pg (27-33); Mean Corpuscular Volume 96.3 fL (80-97); Mean Platelet Volume 9.2 fL (7.5-11.2); Platelet Count 150 10^3/uL (150-450); Red Blood Count 3.52 10^6/uL (4.06-5.63); Red Cell Distribution Width 16.8 % (12-17)
[2023-03-17 15:49] LABS: Albumin 4.1 g/dL (3.2-5.2); Albumin/Globulin Ratio 1.1 (1-3); C Reactive Protein 142.87 mg/L (<8.01); Calcium 7.9 mg/dL (8.6-10.3); Creatinine, Serum 8.1 mg/dL (0.67-1.17); Globulin 3.6 g/dL (2-4); Potassium 6.4 mmol/L (3.5-5.0); Total Bilirubin 0.6 mg/dL (0.2-1.0); Total Protein 7.7 g/dL (6.4-8.9); eGFR CKD-EPI 6.8 (>60)
[2023-03-17 15:53] LABS: Activated Partial Thrombo Time 36.6 seconds (26.0-38.0); INR 1.1 (0.83-1.13)
[2023-03-17] MEDS ORDERED: Dextrose 50% Syringe 50 ml 25 GM/50 ML SYRINGE IV PUSH ONE ×2 (15:55→18:53)
[2023-03-17] MEDS ORDERED: CALCIUM GLUCONATE 1GM/50ML NS 1 GM/50 ML BAG IV ONE (15:55)
[2023-03-17] MEDS ORDERED: SODIUM ZIRCONIUM CYCLOSILICATE 10 GM PACKET PO ONE (16:00)
[2023-03-17] MEDS ORDERED: Albuterol 2.5mg/3 ml (0.083%) NEB.SOLN INH ONE (16:21)
[2023-03-17 16:51] LABS: High Sensitivity Troponin 1 Hr 31 pg/mL (<20)
[2023-03-17] MEDS ORDERED: Dextrose 50% Syringe 50 ml 25 GM/50 ML SYRINGE ONE (18:52)
[2023-03-17] MEDS ORDERED: Dextrose 50% Syringe 50 ml 25 GM/50 ML SYRINGE IV PUSH PRN (19:21)
[2023-03-17 20:06] LABS: Hemoglobin 10.6 g/dL (13.2-16.3); Mean Corpuscular Hemoglobin 31.8 pg (27-33); Mean Corpuscular Volume 96.4 fL (80-97); Mean Platelet Volume 9.3 fL (7.5-11.2); Platelet Count 139 10^3/uL (150-450); Red Blood Count 3.32 10^6/uL (4.06-5.63); Red Cell Distribution Width 17.3 % (12-17); White Blood Count 9.2 10^3/uL (3.6-10.2)
[2023-03-17 20:25] LABS: Calcium 7.8 mg/dL (8.6-10.3); Creatinine, Serum 8.1 mg/dL (0.67-1.17); Potassium 5.6 mmol/L (3.5-5.0); eGFR CKD-EPI 6.8 (>60)
[2023-03-17] MEDS: SODIUM ZIRCONIUM CYCLOSILICATE 10 GM PACKET PO ONE (20:58)
[2023-03-17] MEDS ORDERED: Labetalol IV 5 MG/ML 20 ml VIAL IV PUSH ONE (21:21)
[2023-03-17] MEDS ORDERED: Albumin Human 25% 25 GM/100 ML BTL IV PRN (21:42)
[2023-03-17] MEDS ORDERED: Heparin 1,000 UNIT/ML 10 ml (10,000 UNITS) CATHLAB/DIALYSIS DIALYSIS ONE (22:00)
[2023-03-17] MEDS: Heparin 1,000 UNIT/ML 10 ml (10,000 UNITS) CATHLAB/DIALYSIS DIALYSIS PRN (23:00)
[2023-03-17] MEDS ORDERED: hydrALAZINE 20 mg/ml 1 ML Vial IV IV SLOW PU PRN (23:59)
[2023-03-18] MEDS ORDERED: Dextrose 50% Syringe 50 ml 25 GM/50 ML SYRINGE IV PUSH PRN (00:43)
[2023-03-18] MEDS: Heparin 1,000 UNIT/ML 10 ml (10,000 UNITS) CATHLAB/DIALYSIS DIALYSIS PRN ×5 (01:00→04:14)
[2023-03-18 01:54] LABS: Hepatitis B Surface Antigen Nonreactive (Nonreactive)
[2023-03-18 02:11] LABS: Hepatitis B Surface Ab Immune (Immune)
[2023-03-18] MEDS ORDERED: Morphine 2 MG/ML SYRINGE IV PRN (02:46)
[2023-03-18] MEDS ORDERED: niCARdipine 0.1MG/ML IVPREMIX 20 MG/200 ML BAG IV SCH (03:00)
[2023-03-18] MEDS ORDERED: Ondansetron 4 mg VIAL 2 MG/ML 2 ml VIAL IV PRN (03:09)
[2023-03-18 04:44] LABS: Activated Partial Thrombo Time 60.6 seconds (26.0-38.0); INR 1.13 (0.83-1.13)
[2023-03-18] MEDS: Heparin 5000 UNITS/ML 1 mL VIAL SUBCUT SCH ×2 (08:03→20:43)
[2023-03-18 08:20] LABS: Hematocrit 33.3 % (38-53); Hemoglobin 11.1 g/dL (13.2-16.3); Mean Corpuscular Hemoglobin 31.5 pg (27-33); Mean Corpuscular Hgb Conc 33.2 g/dL (31-36); Mean Corpuscular Volume 94.7 fL (80-97); Mean Platelet Volume 9.4 fL (7.5-11.2); Platelet Count 143 10^3/uL (150-450); Red Blood Count 3.52 10^6/uL (4.06-5.63); Red Cell Distribution Width 16.9 % (12-17); White Blood Count 6.7 10^3/uL (3.6-10.2)
[2023-03-18 08:50] LABS: Calcium 8.3 mg/dL (8.6-10.3); Creatinine, Serum 3.83 mg/dL (0.67-1.17); Magnesium 1.8 mg/dL (1.9-2.7); Potassium 4.2 mmol/L (3.5-5.0); eGFR CKD-EPI 16.7 (>60)
[2023-03-18] MEDS ORDERED: Magnesium Sulfate 2 gm BAG 2 GM/50 ML BAG IVPB ONE (09:11)
[2023-03-18] MEDS ORDERED: NS 0.9% 1000 ml BAG 100 ML IV PRN (12:41)
[2023-03-18] MEDS ORDERED: NS 0.9% 1000 ml BAG 200 ML IV PRN (12:41)
[2023-03-18] MEDS ORDERED: Albumin Human 25% 25 GM/100 ML BTL IV PRN (12:41)
[2023-03-18] MEDS: Saliva Substitute (NF) 1 SPRAY BTL MT SCH (15:33)
[2023-03-19] MEDS: Saliva Substitute (NF) 1 SPRAY BTL MT SCH ×3 (02:04→16:32)
[2023-03-19 04:04] LABS: Calcium 7.5 mg/dL (8.6-10.3); Creatinine, Serum 5.93 mg/dL (0.67-1.17); Magnesium 1.9 mg/dL (1.9-2.7); Phosphorus 6.1 mg/dL (2.5-5.0); Potassium 5.1 mmol/L (3.5-5.0); eGFR CKD-EPI 9.9 (>60)
[2023-03-19] MEDS: Heparin 5000 UNITS/ML 1 mL VIAL SUBCUT SCH (08:48)
[2023-03-19] MEDS: Heparin 1,000 UNIT/ML 10 ml (10,000 UNITS) CATHLAB/DIALYSIS DIALYSIS PRN ×5 (13:43→17:44)
[2023-03-19 19:21] VITALS: BP 156/86
[2023-03-20 11:04] LABS: Hepatitis Be Antigen Negative (Negative)
[2023-03-20 12:14] LABS: Hepatitis Be Antibody Negative (Negative)
== END 2023-03-19 18:35 | disposition home or self-care (01) | DRG 189 ==
LOC: ED 14:33 → EDHOLD 18:53 → ICU 21:38
PROVIDERS: ADMIT Student in an Organized Health Care Education/Training Program; ATTEND Student in an Organized Health Care Education/Training Program

== ENCOUNTER 2023-03-30 19:23 | Inpatient (IN) ==
[2023-03-30] MEDS ORDERED: Ondansetron 4 mg VIAL 2 MG/ML 2 ml VIAL IV ONE (21:02)
[2023-03-30 21:24] LABS: ABS Basophils 0.1 10^3/uL (0.0-0.1); ABS Eosinophils 0.5 10^3/uL (0.0-0.5); ABS Lymphocytes 0.7 10^3/uL (1.0-4.8); ABS Monocytes 0.6 10^3/uL (0.0-1.1); ABS Neutrophils 6.8 10^3/uL (1.5-7.6); ABS Nucleated RBC 0.01 10^3/ul; Eosinophil % 6.2 %; Hematocrit 38.1 % (38-53); Hemoglobin 12.9 g/dL (13.2-16.3); Lymphocyte % 7.8 %; Mean Corpuscular Hemoglobin 31.7 pg (27-33); Mean Corpuscular Hgb Conc 33.8 g/dL (31-36); Mean Corpuscular Volume 93.8 fL (80-97); Mean Platelet Volume 7.9 fL (7.5-11.2); Nucleated Red Blood Cells % 0.1 %/100WBC (0.0-0.8); Platelet Count 228 10^3/uL (150-450); Red Blood Count 4.06 10^6/uL (4.06-5.63); Red Cell Distribution Width 16.2 % (12-17); White Blood Count 8.8 10^3/uL (3.6-10.2)
[2023-03-30 21:46] LABS: Albumin 3.9 g/dL (3.2-5.2); Albumin/Globulin Ratio 1.2 (1-3); C Reactive Protein 11.4 mg/L (<8.01); Calcium 8.3 mg/dL (8.6-10.3); Creatinine, Serum 2.91 mg/dL (0.67-1.17); Globulin 3.3 g/dL (2-4); Potassium 4.2 mmol/L (3.5-5.0); Total Bilirubin 0.9 mg/dL (0.2-1.0); Total Protein 7.2 g/dL (6.4-8.9); eGFR CKD-EPI 23.2 (>60)
[2023-03-30] MEDS ORDERED: niCARdipine 0.1MG/ML IVPREMIX 20 MG/200 ML BAG IV SCH (22:00)
[2023-03-30] MEDS ORDERED: Iodixanol (CONTRAST) 320 MG/ML 100 ML SDV IV ONE (22:11)
[2023-03-30 22:44] LABS: Erythrocyte Sed Rate 40 mm/Hr (0-19)
[2023-03-31 00:30] LABS: Urine Appearance Clear; Urine Bilirubin Negative (Negative); Urine Blood 1+ (Negative); Urine Color Yellow; Urine Glucose 1+(50 mg/dL) (Negative); Urine Ketones Trace (Negative); Urine Nitrite Negative (Negative); Urine Protein 3+(>=500 mg/dL) (Negative); Urine Specific Gravity 1.011 (1.002-1.030); Urine Urobilinogen Negative (Negative)
[2023-03-31 00:39] LABS: Urine Bacteria Absent (Absent); Urine Red Blood Cell 3+(>10/hpf) (Absent); Urine Squamous Epithelial Cell Present (Absent); Urine White Blood Cell Trace(0-5/hpf) (Absent)
[2023-03-31] MEDS ORDERED: Ondansetron 4 mg VIAL 2 MG/ML 2 ml VIAL IV ONE (01:10)
[2023-03-31] MEDS ORDERED: cloNIDine 0.1 MG PATCH 0.1 MG/24 HR 7 DAY PATCH TRANSDERM SCH (02:00)
[2023-03-31] MEDS ORDERED: Ondansetron 4 mg VIAL 2 MG/ML 2 ml VIAL IV PRN (02:23)
[2023-03-31] MEDS ORDERED: hydrALAZINE 20 mg/ml 1 ML Vial IV IV SLOW PU PRN (02:26)
[2023-03-31 07:55] LABS: ABS Eosinophils 0.5 10^3/uL (0.0-0.5); ABS Lymphocytes 0.6 10^3/uL (1.0-4.8); ABS Monocytes 0.6 10^3/uL (0.0-1.1); ABS Nucleated RBC 0.01 10^3/ul; Eosinophil % 7.3 %; Hematocrit 33.4 % (38-53); Hemoglobin 11.3 g/dL (13.2-16.3); Lymphocyte % 9.1 %; Mean Corpuscular Hgb Conc 33.8 g/dL (31-36); Mean Corpuscular Volume 94.8 fL (80-97); Nucleated Red Blood Cells % 0.1 %/100WBC (0.0-0.8); Platelet Count 204 10^3/uL (150-450); Red Blood Count 3.52 10^6/uL (4.06-5.63); Red Cell Distribution Width 16.2 % (12-17); White Blood Count 6.8 10^3/uL (3.6-10.2)
[2023-03-31 08:11] LABS: Calcium 7.5 mg/dL (8.6-10.3); Creatinine, Serum 3.94 mg/dL (0.67-1.17); Potassium 4.6 mmol/L (3.5-5.0); eGFR CKD-EPI 16.1 (>60)
[2023-03-31] MEDS: Heparin 5000 UNITS/ML 1 mL VIAL SUBCUT SCH ×3 (10:31→21:58)
[2023-04-01] MEDS: Heparin 5000 UNITS/ML 1 mL VIAL SUBCUT SCH ×3 (05:49→20:28)
[2023-04-01 06:52] LABS: ABS Basophils 0.1 10^3/uL (0.0-0.1); ABS Eosinophils 0.7 10^3/uL (0.0-0.5); ABS Lymphocytes 0.7 10^3/uL (1.0-4.8); ABS Monocytes 0.8 10^3/uL (0.0-1.1); ABS Neutrophils 5.5 10^3/uL (1.5-7.6); ABS Nucleated RBC 0.01 10^3/ul; Eosinophil % 8.6 %; Lymphocyte % 8.7 %; Mean Corpuscular Hemoglobin 31.9 pg (27-33); Mean Corpuscular Hgb Conc 33.3 g/dL (31-36); Mean Corpuscular Volume 95.6 fL (80-97); Mean Platelet Volume 8.4 fL (7.5-11.2); Nucleated Red Blood Cells % 0.1 %/100WBC (0.0-0.8); Platelet Count 199 10^3/uL (150-450); Red Blood Count 3.45 10^6/uL (4.06-5.63); Red Cell Distribution Width 16.5 % (12-17); White Blood Count 7.7 10^3/uL (3.6-10.2)
[2023-04-01 07:07] LABS: Calcium 7.5 mg/dL (8.6-10.3); Creatinine, Serum 5.82 mg/dL (0.67-1.17); Magnesium 1.9 mg/dL (1.9-2.7); eGFR CKD-EPI 10.1 (>60)
[2023-04-01] MEDS ORDERED: Albumin Human 25% 25 GM/100 ML BTL IV PRN (14:18)
[2023-04-01] MEDS ORDERED: NS 0.9% 1000 ml BAG 200 ML IV PRN (14:18)
[2023-04-01] MEDS ORDERED: NS 0.9% 1000 ml BAG 100 ML IV PRN (14:18)
[2023-04-01] MEDS: Polyethylene Glycol 3350 17 GM PACKET PO PRN (14:45)
[2023-04-01] MEDS ORDERED: cloNIDine 0.3 MG PATCH 0.3 MG/24 HR 7 DAY PATCH TRANSDERM SCH (15:00)
[2023-04-01 16:25] LABS: Hepatitis B Surface Antigen Nonreactive (Nonreactive)
[2023-04-01 16:42] LABS: Hepatitis B Surface Ab Immune (Immune)
[2023-04-01] MEDS: Senna TAB 8.6 mg TAB PO PRN (20:29)
[2023-04-02] MEDS: Heparin 5000 UNITS/ML 1 mL VIAL SUBCUT SCH ×3 (05:49→21:37)
[2023-04-02 06:54] LABS: ABS Basophils 0.1 10^3/uL (0.0-0.1); ABS Lymphocytes 0.8 10^3/uL (1.0-4.8); ABS Neutrophils 7.4 10^3/uL (1.5-7.6); Eosinophil % 9.5 %; Hematocrit 34.2 % (38-53); Hemoglobin 11.3 g/dL (13.2-16.3); Mean Corpuscular Hemoglobin 31.7 pg (27-33); Mean Corpuscular Hgb Conc 33.1 g/dL (31-36); Mean Corpuscular Volume 95.7 fL (80-97); Mean Platelet Volume 8.7 fL (7.5-11.2); Platelet Count 200 10^3/uL (150-450); Red Blood Count 3.57 10^6/uL (4.06-5.63); White Blood Count 10.2 10^3/uL (3.6-10.2)
[2023-04-02 07:09] LABS: Calcium 7.3 mg/dL (8.6-10.3); Creatinine, Serum 7.36 mg/dL (0.67-1.17); Phosphorus 6.7 mg/dL (2.5-5.0); Potassium 5.5 mmol/L (3.5-5.0); eGFR CKD-EPI 7.6 (>60)
[2023-04-02] MEDS: Polyethylene Glycol 3350 17 GM PACKET PO PRN (11:57)
[2023-04-02] MEDS: Senna TAB 8.6 mg TAB PO PRN (11:57)
[2023-04-02] MEDS ORDERED: Clindamycin 600 MG/D5W BAG 600 MG/50 ML BAG IV ONE (12:00)
[2023-04-02] MEDS ORDERED: fentaNYL 100 mcg/2 ml 50 MCG/ML VIAL ONE (13:07)
[2023-04-02] MEDS ORDERED: Midazolam 5 mg/5 ml VIAL 1 mg/ml 5 ml VIAL (5 mg) ONE (13:07)
[2023-04-02] MEDS ORDERED: Lidocaine 1% MPF 5 ML VIAL ONE (13:10)
[2023-04-02] MEDS ORDERED: Iohexol 300 (CONTRAST) 10 ML SDV ONE (13:15)
[2023-04-02] MEDS ORDERED: Heparin 2 UNITS/ML 1000 mls 1,000 ML IV ONE (13:17)
[2023-04-02] MEDS: Heparin 1,000 UNIT/ML 10 ml (10,000 UNITS) CATHLAB/DIALYSIS DIALYSIS PRN ×2 (14:15→19:15)
[2023-04-03 00:23] LABS: Hematocrit 32.3 % (38-53); Hemoglobin 10.9 g/dL (13.2-16.3)
[2023-04-03] MEDS: Heparin 5000 UNITS/ML 1 mL VIAL SUBCUT SCH (05:29)
[2023-04-03 06:49] LABS: ABS Basophils 0.1 10^3/uL (0.0-0.1); ABS Eosinophils 0.7 10^3/uL (0.0-0.5); ABS Lymphocytes 0.6 10^3/uL (1.0-4.8); ABS Monocytes 0.7 10^3/uL (0.0-1.1); ABS Neutrophils 6.2 10^3/uL (1.5-7.6); Eosinophil % 8.6 %; Hematocrit 32.8 % (38-53); Hemoglobin 10.8 g/dL (13.2-16.3); Lymphocyte % 7.7 %; Mean Corpuscular Hemoglobin 31.5 pg (27-33); Mean Corpuscular Volume 95.5 fL (80-97); Mean Platelet Volume 8.6 fL (7.5-11.2); Platelet Count 200 10^3/uL (150-450); Red Blood Count 3.44 10^6/uL (4.06-5.63); Red Cell Distribution Width 17.4 % (12-17); White Blood Count 8.4 10^3/uL (3.6-10.2)
[2023-04-03 07:08] LABS: Creatinine, Serum 5.1 mg/dL (0.67-1.17); Magnesium 1.8 mg/dL (1.9-2.7); Phosphorus 5.7 mg/dL (2.5-5.0); Potassium 4.9 mmol/L (3.5-5.0); eGFR CKD-EPI 11.8 (>60)
[2023-04-03] MEDS ORDERED: Magnesium Sulfate IV 1GM/100ML 1 GM/100 ML BAG IV ONE (07:28)
[2023-04-03 09:59] VITALS: BP 117/67
== END 2023-04-03 10:45 | disposition home or self-care (01) | DRG 673 ==
LOC: ED 19:23 → EDHOLD 19:23 → SUATTDRO 03-31 02:23 → MED 03-31 09:37 → SUATTDRO 04-02 13:31
PROVIDERS: ADMIT Internal Medicine; ATTEND Student in an Organized Health Care Education/Training Program

== ENCOUNTER 2023-04-29 02:50 | Inpatient (IN) ==
[2023-04-29 04:50] LABS: ABS Basophils 0.1 10^3/uL (0.0-0.1); ABS Eosinophils 0.6 10^3/uL (0.0-0.5); ABS Lymphocytes 0.5 10^3/uL (1.0-4.8); ABS Neutrophils 12.5 10^3/uL (1.5-7.6); Eosinophil % 4.4 %; Hematocrit 36.3 % (38-53); Lymphocyte % 3.1 %; Mean Corpuscular Hemoglobin 32.3 pg (27-33); Mean Corpuscular Hgb Conc 33.1 g/dL (31-36); Mean Corpuscular Volume 97.7 fL (80-97); Mean Platelet Volume 8.5 fL (7.5-11.2); Platelet Count 130 10^3/uL (150-450); Red Blood Count 3.72 10^6/uL (4.06-5.63); Red Cell Distribution Width 16.3 % (12-17); White Blood Count 14.6 10^3/uL (3.6-10.2)
[2023-04-29 05:17] LABS: Albumin/Globulin Ratio 1.3 (1-3); Calcium 8.2 mg/dL (8.6-10.3); Creatinine, Serum 5.88 mg/dL (0.67-1.17); Globulin 3.2 g/dL (2-4); Potassium 6.3 mmol/L (3.5-5.0); Total Protein 7.2 g/dL (6.4-8.9)
[2023-04-29] MEDS: NS 0.9% 1000 ml BAG 1,000 ML IV ONE (05:20)
[2023-04-29 05:51] LABS: TSH Ultra Thyroid Stim Horm 0.39 mcIU/mL (0.34-5.60)
[2023-04-29] MEDS: CALCIUM GLUCONATE 1GM/50ML NS 1 GM/50 ML BAG IV ONE (05:56)
[2023-04-29 06:20] LABS: Potassium 5.3 mmol/L (3.5-5.0)
[2023-04-29] MEDS: Vancomycin 1,250 MG in NS 0.9% 250 ml 250 ML IVPB ONE (06:52)
[2023-04-29] MEDS: Cefepime 1 GM in Dextrose 1 GM/50 ML BAG IV ONE (06:52)
[2023-04-29 07:13] LABS: Urine Appearance Clear; Urine Bilirubin Negative (Negative); Urine Blood Negative (Negative); Urine Color Yellow; Urine Glucose 1+ (>=70 mg/dL) (Negative); Urine Ketones Negative (Negative); Urine Nitrite Negative (Negative); Urine Protein 3+ (>=300 mg/dL) (Negative); Urine Specific Gravity 1.014 (1.002-1.030); Urine Urobilinogen Negative (Negative)
[2023-04-29 07:24] LABS: Urine Bacteria 1+ /HPF (Absent); Urine Red Blood Cell 1+(3-5/hpf) /HPF (0-Trace); Urine Sperm Present /HPF (Absent); Urine White Blood Cell Trace(0-5/hpf) /HPF (0-Trace)
[2023-04-29] MEDS ORDERED: NS 0.9% 1000 ml BAG 200 ML IV PRN (07:31)
[2023-04-29] MEDS ORDERED: NS 0.9% 1000 ml BAG 100 ML IV PRN (07:31)
[2023-04-29] MEDS ORDERED: Albumin Human 25% 25 GM/100 ML BTL IV PRN (07:31)
[2023-04-29 08:23] LABS: C Reactive Protein 66.39 mg/L (<8.01)
[2023-04-29] MEDS: Heparin 1,000 UNIT/ML 10 ml (10,000 UNITS) CATHLAB/DIALYSIS DIALYSIS PRN (08:35)
[2023-04-29 10:01] LABS: Erythrocyte Sed Rate 46 mm/Hr (0-19)
[2023-04-29 12:47] LABS: Hepatitis B Surface Antigen Nonreactive (Nonreactive)
[2023-04-29 13:05] LABS: Hepatitis B Surface Ab Immune (Immune)
[2023-04-29] MEDS: SODIUM ZIRCONIUM CYCLOSILICATE 10 GM PACKET PO SCH (15:32)
[2023-04-29] MEDS: Cefepime 1 GM in Dextrose 1 GM/50 ML BAG IV SCH (15:56)
[2023-04-29] MEDS: Heparin 5000 UNITS/ML 1 mL VIAL SUBCUT SCH (21:06)
[2023-04-29] MEDS ORDERED: Vancomycin per Pharmacy 1 EA NOTE FOLLOW UP PRN (21:21)
[2023-04-29] MEDS: Vancomycin 500 MG in NS 0.9% 250 ML IVPB ONE (21:53)
[2023-04-29] MEDS: Ondansetron 4 mg VIAL 2 MG/ML 2 ml VIAL IV ONE (21:53)
[2023-04-30 06:30] LABS: ABS Basophils 0.1 10^3/uL (0.0-0.1); ABS Eosinophils 0.4 10^3/uL (0.0-0.5); ABS Lymphocytes 0.7 10^3/uL (1.0-4.8); ABS Monocytes 0.8 10^3/uL (0.0-1.1); ABS Neutrophils 9.4 10^3/uL (1.5-7.6); ABS Nucleated RBC 0.01 10^3/ul; Eosinophil % 3.5 %; Hematocrit 37.5 % (38-53); Hemoglobin 12.4 g/dL (13.2-16.3); Lymphocyte % 6.2 %; Mean Corpuscular Hemoglobin 32.2 pg (27-33); Mean Corpuscular Volume 97.3 fL (80-97); Mean Platelet Volume 8.9 fL (7.5-11.2); Nucleated Red Blood Cells % 0.1 %/100WBC (0.0-0.8); Platelet Count 116 10^3/uL (150-450); Red Blood Count 3.85 10^6/uL (4.06-5.63); Red Cell Distribution Width 16.3 % (12-17); White Blood Count 11.4 10^3/uL (3.6-10.2)
[2023-04-30 06:55] LABS: Creatinine, Serum 4.92 mg/dL (0.67-1.17); eGFR CKD-EPI 12.3 (>60)
[2023-04-30 07:08] LABS: Vancomycin Random 17.4 mcg/mL
[2023-04-30] MEDS: Vancomycin Random Level NOTE FOLLOW UP ONE (07:33)
[2023-04-30] MEDS ORDERED: ceFAZolin 2 GM in NS PREMIX 2 GM/100 ML BAG IVPB SCH (08:00)
[2023-04-30] MEDS: ceFAZolin 2 GM PREMIX 2 GM/50 ML BAG IV SCH (09:32)
[2023-04-30] MEDS ORDERED: Ondansetron 4 mg VIAL 2 MG/ML 2 ml VIAL IV PRN (10:13)
[2023-04-30] MEDS: Clindamycin 600 MG/D5W BAG 600 MG/50 ML BAG IV ONE (12:07)
[2023-04-30] MEDS ORDERED: Midazolam 5 mg/5 ml VIAL 1 mg/ml 5 ml VIAL (5 mg) ONE (13:22)
[2023-04-30] MEDS ORDERED: Heparin 2 UNITS/ML IVPREMIX 1,000 UNIT/500 ML BAG IV ONE (13:23)
[2023-04-30] MEDS ORDERED: fentaNYL 100 mcg/2 ml 50 MCG/ML VIAL ONE (13:23)
[2023-04-30] MEDS ORDERED: Lidocaine 1% VIAL 10 MG/ML 30 ML VIAL ONE (13:23)
[2023-04-30] MEDS ORDERED: Heparin 1,000 UNIT/ML 10 ml (10,000 UNITS) CATHLAB/DIALYSIS ONE (13:23)
[2023-04-30] MEDS ORDERED: Cefepime 1 GM in Dextrose 1 GM/50 ML BAG IV SCH (16:00)
[2023-05-01] MEDS: Acetaminophen IV 1 GM/100ML 1,000 MG/100 ML BAG IV PRN (07:26)
[2023-05-01 10:22] LABS: ABS Basophils 0.1 10^3/uL (0.0-0.1); ABS Eosinophils 1.1 10^3/uL (0.0-0.5); ABS Lymphocytes 0.6 10^3/uL (1.0-4.8); ABS Monocytes 0.7 10^3/uL (0.0-1.1); ABS Neutrophils 5.4 10^3/uL (1.5-7.6); Eosinophil % 14.3 %; Hematocrit 36.5 % (38-53); Hemoglobin 12.3 g/dL (13.2-16.3); Lymphocyte % 7.3 %; Mean Corpuscular Hemoglobin 32.9 pg (27-33); Mean Corpuscular Hgb Conc 33.8 g/dL (31-36); Mean Corpuscular Volume 97.3 fL (80-97); Mean Platelet Volume 9.3 fL (7.5-11.2); Platelet Count 109 10^3/uL (150-450); Red Blood Count 3.75 10^6/uL (4.06-5.63); Red Cell Distribution Width 16.1 % (12-17); White Blood Count 7.9 10^3/uL (3.6-10.2)
[2023-05-01] MEDS: Magnesium Sulfate IV 1GM/100ML 1 GM/100 ML BAG IV ONE (14:58)
[2023-05-01 15:05] LABS: Calcium 8.9 mg/dL (8.6-10.3); Creatinine, Serum 3.64 mg/dL (0.67-1.17); Potassium 4.2 mmol/L (3.5-5.0); eGFR CKD-EPI 17.7 (>60)
[2023-05-01] MEDS: ceFAZolin 1 GM in Dextrose 1 GM/50 ML BAG IVPB SCH (20:21)
[2023-05-02 06:19] LABS: ABS Basophils 0.1 10^3/uL (0.0-0.1); ABS Eosinophils 1.4 10^3/uL (0.0-0.5); ABS Lymphocytes 0.7 10^3/uL (1.0-4.8); ABS Monocytes 0.9 10^3/uL (0.0-1.1); ABS Neutrophils 4.3 10^3/uL (1.5-7.6); Eosinophil % 18.4 %; Hematocrit 38.3 % (38-53); Hemoglobin 12.9 g/dL (13.2-16.3); Lymphocyte % 9.6 %; Mean Corpuscular Hemoglobin 32.9 pg (27-33); Mean Corpuscular Hgb Conc 33.7 g/dL (31-36); Mean Corpuscular Volume 97.6 fL (80-97); Mean Platelet Volume 9.5 fL (7.5-11.2); Platelet Count 123 10^3/uL (150-450); Red Blood Count 3.92 10^6/uL (4.06-5.63); Red Cell Distribution Width 16.5 % (12-17); White Blood Count 7.3 10^3/uL (3.6-10.2)
[2023-05-02 06:42] LABS: Calcium 8.5 mg/dL (8.6-10.3); Creatinine, Serum 5.71 mg/dL (0.67-1.17); Magnesium 2.1 mg/dL (1.9-2.7); Potassium 4.6 mmol/L (3.5-5.0); eGFR CKD-EPI 10.3 (>60)
[2023-05-03 06:25] LABS: ABS Basophils 0.1 10^3/uL (0.0-0.1); ABS Eosinophils 1.7 10^3/uL (0.0-0.5); ABS Lymphocytes 0.9 10^3/uL (1.0-4.8); ABS Monocytes 0.8 10^3/uL (0.0-1.1); ABS Neutrophils 3.6 10^3/uL (1.5-7.6); Hematocrit 37.2 % (38-53); Hemoglobin 12.1 g/dL (13.2-16.3); Lymphocyte % 12.3 %; Mean Corpuscular Hemoglobin 31.9 pg (27-33); Mean Corpuscular Hgb Conc 32.6 g/dL (31-36); Mean Corpuscular Volume 97.7 fL (80-97); Mean Platelet Volume 9.5 fL (7.5-11.2); Nucleated Red Blood Cells % 0.1 %/100WBC (0.0-0.8); Platelet Count 128 10^3/uL (150-450); Red Cell Distribution Width 16.3 % (12-17); White Blood Count 6.9 10^3/uL (3.6-10.2)
[2023-05-03 06:43] LABS: Calcium 7.8 mg/dL (8.6-10.3); Creatinine, Serum 7.48 mg/dL (0.67-1.17); Potassium 4.8 mmol/L (3.5-5.0); eGFR CKD-EPI 7.5 (>60)
[2023-05-03 11:35] VITALS: BP 173/101
== END 2023-05-03 14:00 | disposition home or self-care (01) | DRG 252 ==
LOC: ED 02:50 → EDHOLD 07:51 → MED 08:12
PROVIDERS: ADMIT Hospitalist; ATTEND Hospitalist

== ENCOUNTER 2023-07-29 11:50 | Inpatient (IN) ==
[2023-07-29 12:38] LABS: ABS Basophils 0.2 10^3/uL (0.0-0.1); ABS Eosinophils 1.3 10^3/uL (0.0-0.5); ABS Lymphocytes 0.7 10^3/uL (1.0-4.8); ABS Monocytes 0.7 10^3/uL (0.0-1.1); ABS Neutrophils 9.2 10^3/uL (1.5-7.6); Eosinophil % 10.6 %; Hematocrit 27.1 % (38-53); Hemoglobin 9.1 g/dL (13.2-16.3); Lymphocyte % 5.6 %; Mean Corpuscular Hemoglobin 32.3 pg (27-33); Mean Corpuscular Hgb Conc 33.8 g/dL (31-36); Mean Corpuscular Volume 95.6 fL (80-97); Mean Platelet Volume 8.6 fL (7.5-11.2); Platelet Count 140 10^3/uL (150-450); Red Blood Count 2.83 10^6/uL (4.06-5.63); Red Cell Distribution Width 13.5 % (12-17); White Blood Count 12.1 10^3/uL (3.6-10.2)
[2023-07-29 13:19] LABS: Albumin 4.3 g/dL (3.2-5.2); Albumin/Globulin Ratio 1.3 (1-3); Calcium 8.2 mg/dL (8.6-10.3); Creatinine, Serum 6.6 mg/dL (0.67-1.17); Globulin 3.3 g/dL (2-4); Total Bilirubin 0.8 mg/dL (0.2-1.0); Total Protein 7.6 g/dL (6.4-8.9); eGFR CKD-EPI 8.6 (>60)
[2023-07-29 13:21] LABS: INR 1.03 (0.83-1.13)
[2023-07-29] MEDS: nitroGLYCERIN DRIP 25,000 MCG/250 ML BTL IV SCH ×2 (13:26→18:10)
[2023-07-29 14:21] LABS: High Sensitivity Troponin 1 Hr 21 pg/mL (<20)
[2023-07-29] MEDS ORDERED: Albumin Human 25% 25 GM/100 ML BTL IV PRN (15:35)
[2023-07-29] MEDS ORDERED: NS 0.9% 1000 ml BAG 100 ML IV PRN (15:35)
[2023-07-29] MEDS ORDERED: NS 0.9% 1000 ml BAG 200 ML IV PRN (15:35)
[2023-07-29] MEDS: Heparin 1,000 UNIT/ML 10 ml (10,000 UNITS) CATHLAB/DIALYSIS DIALYSIS PRN (17:10)
[2023-07-29 17:21] LABS: Hepatitis B Surface Antigen Nonreactive (Nonreactive)
[2023-07-29 17:38] LABS: Hepatitis B Surface Ab Immune (Immune)
[2023-07-29] MEDS: Ondansetron 4 mg VIAL 2 MG/ML 2 ml VIAL IV PRN (19:43)
[2023-07-29] MEDS: Heparin 5000 UNITS/ML 1 mL VIAL SUBCUT SCH (22:15)
[2023-07-30 05:00] LABS: ABS Basophils 0.1 10^3/uL (0.0-0.1); ABS Eosinophils 0.5 10^3/uL (0.0-0.5); ABS Lymphocytes 0.7 10^3/uL (1.0-4.8); ABS Monocytes 0.6 10^3/uL (0.0-1.1); ABS Neutrophils 5.4 10^3/uL (1.5-7.6); Eosinophil % 6.3 %; Hematocrit 23.6 % (38-53); Hemoglobin 8.1 g/dL (13.2-16.3); Lymphocyte % 9.9 %; Mean Corpuscular Hemoglobin 32.5 pg (27-33); Mean Corpuscular Hgb Conc 34.2 g/dL (31-36); Mean Corpuscular Volume 95.1 fL (80-97); Mean Platelet Volume 8.5 fL (7.5-11.2); Platelet Count 123 10^3/uL (150-450); Red Blood Count 2.48 10^6/uL (4.06-5.63); Red Cell Distribution Width 13.1 % (12-17); White Blood Count 7.2 10^3/uL (3.6-10.2)
[2023-07-30 06:33] LABS: Albumin 3.9 g/dL (3.2-5.2); Albumin/Globulin Ratio 1.3 (1-3); Calcium 8.2 mg/dL (8.6-10.3); Creatinine, Serum 4.03 mg/dL (0.67-1.17); Globulin 2.9 g/dL (2-4); Magnesium 1.8 mg/dL (1.9-2.7); Potassium 4.2 mmol/L (3.5-5.0); Total Bilirubin 1.5 mg/dL (0.2-1.0); Total Protein 6.8 g/dL (6.4-8.9); eGFR CKD-EPI 15.6 (>60)
[2023-07-30 14:52] VITALS: BP 158/89
== END 2023-07-30 14:35 | disposition home or self-care (01) | DRG 640 ==
LOC: ED 11:50 → EDHOLD 15:36 → ICU 16:45
PROVIDERS: ADMIT Student in an Organized Health Care Education/Training Program; ATTEND Student in an Organized Health Care Education/Training Program

== ENCOUNTER 2023-07-31 12:05 | Observation (INO) ==
[2023-07-31] MEDS: NS 0.9% 500 ml BAG 500 ML IV ONE ×2 (14:17→21:37)
[2023-07-31 14:25] LABS: ABS Basophils 0.1 10^3/uL (0.0-0.1); ABS Eosinophils 1.4 10^3/uL (0.0-0.5); ABS Lymphocytes 1.2 10^3/uL (1.0-4.8); ABS Monocytes 0.6 10^3/uL (0.0-1.1); ABS Neutrophils 5.1 10^3/uL (1.5-7.6); ABS Nucleated RBC 0.01 10^3/ul; Eosinophil % 16.3 %; Hematocrit 31.8 % (38-53); Hemoglobin 10.9 g/dL (13.2-16.3); Lymphocyte % 13.9 %; Mean Corpuscular Hemoglobin 32.2 pg (27-33); Mean Corpuscular Hgb Conc 34.3 g/dL (31-36); Mean Corpuscular Volume 93.9 fL (80-97); Mean Platelet Volume 9.5 fL (7.5-11.2); Nucleated Red Blood Cells % 0.1 %/100WBC (0.0-0.8); Platelet Count 181 10^3/uL (150-450); Red Blood Count 3.39 10^6/uL (4.06-5.63); White Blood Count 8.4 10^3/uL (3.6-10.2)
[2023-07-31 14:27] LABS: Activated Partial Thrombo Time 27.9 seconds (26.0-38.0); INR 1.03 (0.83-1.13)
[2023-07-31 14:54] LABS: Albumin 4.7 g/dL (3.2-5.2); Albumin/Globulin Ratio 1.3 (1-3); C Reactive Protein 82.14 mg/L (<8.01); Calcium 9.5 mg/dL (8.6-10.3); Creatinine, Serum 5.36 mg/dL (0.67-1.17); Globulin 3.6 g/dL (2-4); Potassium 4.8 mmol/L (3.5-5.0); Total Bilirubin 1.3 mg/dL (0.2-1.0); Total Protein 8.3 g/dL (6.4-8.9); eGFR CKD-EPI 11.1 (>60)
[2023-07-31 15:43] LABS: High Sensitivity Troponin 1 Hr 14 pg/mL (<20)
[2023-07-31] MEDS ORDERED: Ondansetron 4 mg VIAL 2 MG/ML 2 ml VIAL IV PRN (19:58)
[2023-08-01 08:57] VITALS: BP 175/79
== END 2023-08-01 08:35 | disposition home or self-care (01) ==
LOC: ED 12:05 → EDHOLD 12:05 → ED 17:30 → SUATTDRO 19:58 → EDHOLD 08-01 09:16
PROVIDERS: ADMIT Internal Medicine; ATTEND Student in an Organized Health Care Education/Training Program